=== PATIENT | male | born 1945 | race Caucasian/White ===

== ENCOUNTER 2019-05-20 23:48 | Inpatient (IN) ==
[2019-05-21] MEDS ORDERED: ACETAMINOPHEN 325 MG TABLET PO PRN (02:17)
[2019-05-21] MEDS ORDERED: ONDANSETRON 4 MG/2 ML VIAL IV PRN (02:17)
[2019-05-21] MEDS ORDERED: GLUCAGON 1 MG VIAL IM PRN (02:24)
[2019-05-21] MEDS ORDERED: DEXTROSE 50% 25 GM/50 ML VIAL IV PRN (02:24)
[2019-05-21] MEDS ORDERED: ENOXAPARIN 40 MG/0.4 ML SYRINGE SUBCUT SCH (02:30)
[2019-05-21 03:26] LABS: Basophils # 0.1 10*3/uL (0.0-0.2); Basophils % 0.7 % (0.0-0.8); Eosinophils # 0.3 10*3/uL (0.0-0.87); Eosinophils % 3.2 % (0.00-10.9); Hematocrit 42.1 VOL% (42.0-52.0); Hemoglobin 14.1 GM/DL (14.0-18.0); Immature Granulocytes % 0.6 %; Immature Granulocytes Absolute 0.05 #; Lymphocytes # 2.9 10*3/uL (1.4-4.0); Lymphocytes % 31.6 % (21.2-54.2); Mean Corpuscular HGB Conc 33.5 GM/DL (32-36); Mean Corpuscular Volume 95.7 FL (87-102); Mean Platelet Volume 11.4 FL (9.6-12.0); Monocytes % 12.4 % (1.7-12.7); Neutrophils % 51.5 % (38.7-73.9); Platelet Count 173 T/CUMM (130-400); Red Cell Distribution Width 12.9 % (9.3-17.3); White Blood Count 9.1 T/CUMM (4-12)
[2019-05-21] MEDS: SODIUM CHLORIDE 0.9% 1,000 ML IV SCH ×2 (03:30→21:44)
[2019-05-21 03:52] LABS: Calcium 9.1 MG/DL (8.5-10.1); Osmolality,Calculated 292.5 MOS/KG (273-304); Risk Ratio 5.16; Thyroid Stimulating Hormone 0.068 uIU/ml (0.358-3.74)
[2019-05-21] MEDS: ENOXAPARIN 100 MG/ML SYRINGE SUBCUT SCH ×2 (07:34→17:15)
[2019-05-21] MEDS: LOSARTAN 25 MG TABLET PO SCH (09:21)
[2019-05-21] MEDS: PANTOPRAZOLE 40 MG TABLET PO SCH (09:21)
[2019-05-21] MEDS: INSULIN REGULAR 100 UNIT/ML SUBCUT SCH ×4 (09:21→21:36)
[2019-05-21] MEDS: METOPROLOL TARTRATE 50 MG TABLET PO SCH ×2 (09:21→21:38)
[2019-05-21] MEDS: ASPIRIN EC 81 MG TABLET PO SCH (09:21)
[2019-05-21] MEDS: ISOSORBIDE DINITRATE SR 40 MG TABLET PO SCH ×2 (09:31→21:52)
[2019-05-21 13:27] LABS: Troponin I 0.056 NG/ML (0.00-0.045)
[2019-05-21 15:34] LABS: Troponin I 0.099 NG/ML (0.00-0.045)
[2019-05-21] MEDS ORDERED: ATORVASTATIN 40 MG TABLET PO SCH (21:00)
[2019-05-21] MEDS: MORPHINE 4 MG/1 ML VIAL IV PRN (21:37)
[2019-05-21] MEDS: INSULIN GLARGINE 100 UNIT/ML SUBCUT SCH (21:49)
[2019-05-22] MEDS: MORPHINE 4 MG/1 ML VIAL IV PRN ×2 (01:31→19:47)
[2019-05-22 04:07] LABS: Basophils # 0.1 10*3/uL (0.0-0.2); Basophils % 1.2 % (0.0-0.8); Eosinophils # 0.4 10*3/uL (0.0-0.87); Eosinophils % 5.6 % (0.00-10.9); Hematocrit 41.7 VOL% (42.0-52.0); Hemoglobin 14.4 GM/DL (14.0-18.0); Immature Granulocytes % 0.1 %; Immature Granulocytes Absolute 0.01 #; Lymphocytes # 2.3 10*3/uL (1.4-4.0); Lymphocytes % 33.6 % (21.2-54.2); Mean Corpuscular HGB Conc 34.5 GM/DL (32-36); Mean Corpuscular Volume 94.1 FL (87-102); Mean Platelet Volume 11.2 FL (9.6-12.0); Monocytes % 9.6 % (1.7-12.7); Neutrophils % 49.9 % (38.7-73.9); Platelet Count 154 T/CUMM (130-400); Red Blood Count 4.43 MC/CUMM (3.8-5.5); Red Cell Distribution Width 12.4 % (9.3-17.3); White Blood Count 6.8 T/CUMM (4-12)
[2019-05-22] MEDS: ENOXAPARIN 100 MG/ML SYRINGE SUBCUT SCH ×2 (04:26→17:31)
[2019-05-22 04:46] LABS: Calcium 8.6 MG/DL (8.5-10.1); Free T4 (Free Thyroxine) 1.52 NG/DL (0.76-1.46); Osmolality,Calculated 288.5 MOS/KG (273-304); Thyroid Stimulating Hormone 0.032 uIU/ml (0.358-3.74)
[2019-05-22] MEDS ORDERED: MAGNESIUM SULF RIDER 2 GM in PREMIX 1 EACH IV PRN (07:13)
[2019-05-22] MEDS ORDERED: DIAZEPAM 5 MG TABLET PO ONE ×2 (07:13→15:30)
[2019-05-22] MEDS ORDERED: POTASSIUM CHLORIDE RIDER 10 MEQ in PREMIX 1 EACH IV PRN (07:13)
[2019-05-22] MEDS: ISOSORBIDE DINITRATE SR 40 MG TABLET PO SCH ×3 (08:28→20:46)
[2019-05-22] MEDS: FAMOTIDINE 20 MG/2 ML VIAL IV SCH ×2 (10:47→20:47)
[2019-05-22] MEDS: LOSARTAN 25 MG TABLET PO SCH (10:52)
[2019-05-22] MEDS: predniSONE 20 MG TABLET PO SCH ×3 (10:52→20:47)
[2019-05-22] MEDS: PANTOPRAZOLE 40 MG TABLET PO SCH (10:52)
[2019-05-22] MEDS: METOPROLOL TARTRATE 50 MG TABLET PO SCH ×2 (10:53→20:47)
[2019-05-22] MEDS: ASPIRIN EC 81 MG TABLET PO SCH (11:05)
[2019-05-22] MEDS: INSULIN REGULAR 100 UNIT/ML SUBCUT SCH ×4 (11:05→20:47)
[2019-05-22] MEDS: diphenhydrAMINE 50 MG/1 ML VIAL IV SCH ×2 (12:49→18:27)
[2019-05-22] MEDS ORDERED: LIDOCAINE 1% 20 ML VIAL ONE ×2 (13:55→15:40)
[2019-05-22] MEDS ORDERED: HEPARIN/NACL 0.9% 2 UNITS/ML 0 ML IV ONE (13:55)
[2019-05-22] MEDS: SODIUM CHLORIDE 0.9% 1,000 ML IV SCH (15:13)
[2019-05-22] MEDS ORDERED: MIDAZOLAM 2 MG/2 ML VIAL ONE (15:41)
[2019-05-22] MEDS ORDERED: fentaNYL 100 MCG/2 ML VIAL ONE (15:42)
[2019-05-22] MEDS ORDERED: GLUCAGON 1 MG VIAL IM PRN (16:28)
[2019-05-22] MEDS ORDERED: DEXTROSE 50% 25 GM/50 ML VIAL IV PRN (16:28)
[2019-05-22] MEDS: INSULIN GLARGINE 100 UNIT/ML SUBCUT SCH (20:48)
[2019-05-22] MEDS ORDERED: ROSUVASTATIN 20 MG TABLET PO SCH (21:00)
[2019-05-23] MEDS: diphenhydrAMINE 50 MG/1 ML VIAL IV SCH ×2 (00:19→05:58)
[2019-05-23] MEDS: MORPHINE 4 MG/1 ML VIAL IV PRN ×2 (00:20→04:37)
[2019-05-23] MEDS: predniSONE 20 MG TABLET PO SCH ×3 (00:24→08:25)
[2019-05-23] MEDS: ENOXAPARIN 100 MG/ML SYRINGE SUBCUT SCH (04:35)
[2019-05-23 05:51] LABS: Basophils % 0.1 % (0.0-0.8); Hematocrit 43.6 VOL% (42.0-52.0); Hemoglobin 15.1 GM/DL (14.0-18.0); Immature Granulocytes % 0.4 %; Immature Granulocytes Absolute 0.05 #; Lymphocytes # 1.2 10*3/uL (1.4-4.0); Lymphocytes % 9.1 % (21.2-54.2); Mean Corpuscular HGB Conc 34.6 GM/DL (32-36); Mean Corpuscular Volume 93.8 FL (87-102); Mean Platelet Volume 11.9 FL (9.6-12.0); Monocytes % 2.1 % (1.7-12.7); Neutrophils % 88.3 % (38.7-73.9); Platelet Count 167 T/CUMM (130-400); Red Blood Count 4.65 MC/CUMM (3.8-5.5); Red Cell Distribution Width 12.5 % (9.3-17.3); White Blood Count 13.1 T/CUMM (4-12)
[2019-05-23 06:55] LABS: Calcium 9.3 MG/DL (8.5-10.1); Osmolality,Calculated 290.7 MOS/KG (273-304)
[2019-05-23 07:22] VITALS: BP 145/70
[2019-05-23] MEDS: FAMOTIDINE 20 MG/2 ML VIAL IV SCH (08:21)
[2019-05-23] MEDS: INSULIN REGULAR 100 UNIT/ML SUBCUT SCH (08:24)
[2019-05-23] MEDS: METOPROLOL TARTRATE 50 MG TABLET PO SCH (08:25)
[2019-05-23] MEDS: ASPIRIN EC 81 MG TABLET PO SCH (08:25)
[2019-05-23] MEDS: LOSARTAN 25 MG TABLET PO SCH (08:26)
[2019-05-23] MEDS: PANTOPRAZOLE 40 MG TABLET PO SCH (08:26)
[2019-05-23] MEDS: ISOSORBIDE DINITRATE SR 40 MG TABLET PO SCH (08:28)
[2019-05-23] MEDS ORDERED: CLOPIDOGREL 75 MG TABLET PO SCH (09:00)
== END 2019-05-23 12:39 | disposition home or self-care (01) | DRG 287 ==
LOC: N.TELEN → SUATTDRO 05-21 02:18
PROVIDERS: ADMIT Internal Medicine; ATTEND Internal Medicine

== ENCOUNTER 2021-12-15 09:03 | Inpatient (IN) ==
[2021-12-15] MEDS ORDERED: MEPERIDINE 25 MG/1 ML VIAL IV ONE (09:04)
[2021-12-15] MEDS ORDERED: POTASSIUM CHLORIDE RIDER 10 MEQ/100 ML PREMIX IV PRN (09:19)
[2021-12-15] MEDS ORDERED: MAGNESIUM SULF RIDER 2 GM/50 ML PREMIX IV PRN (09:19)
[2021-12-15] MEDS ORDERED: diphenhydrAMINE CAP 25 MG CAPSULE PO ONE (09:19)
[2021-12-15] MEDS ORDERED: DIAZEPAM 5 MG TABLET PO ONE (09:19)
[2021-12-15] MEDS ORDERED: ASPIRIN 325 MG TABLET PO ONE (09:19)
[2021-12-15] MEDS ORDERED: FAMOTIDINE 20 MG/2 ML VIAL IV ONE ×3 (09:32→10:38)
[2021-12-15] MEDS ORDERED: diphenhydrAMINE 50 MG/1 ML VIAL IV ONE (09:33)
[2021-12-15] MEDS ORDERED: methylPREDNISolone SOD SUC 125 MG/2 ML VIAL IV ONE (09:33)
[2021-12-15 09:53] LABS: Basophils # 0.1 10*3/uL (0.0-0.2); Basophils % 0.7 % (0.0-0.8); Eosinophils # 0.5 10*3/uL (0.0-0.87); Eosinophils % 3.3 % (0.00-10.9); Hematocrit 39.4 VOL% (42.0-52.0); Hemoglobin 12.8 GM/DL (14.0-18.0); Immature Granulocytes % 0.5 %; Immature Granulocytes Absolute 0.08 #; Lymphocytes # 2.1 10*3/uL (1.4-4.0); Lymphocytes % 14.3 % (21.2-54.2); Mean Corpuscular HGB Conc 32.5 GM/DL (32-36); Mean Corpuscular Volume 91.2 FL (87-102); Mean Platelet Volume 9.7 FL (9.6-12.0); Monocytes % 8.4 % (1.7-12.7); Neutrophils % 72.8 % (38.7-73.9); Platelet Count 347 T/CUMM (130-400); Red Blood Count 4.32 MC/CUMM (3.8-5.5); Red Cell Distribution Width 13.5 % (9.3-17.3); White Blood Count 14.7 T/CUMM (4-12)
[2021-12-15 10:08] LABS: Calcium 9.4 MG/DL (8.5-10.1); Potassium 3.9 MMOL/L (3.5-5.1)
[2021-12-15] MEDS ORDERED: DIAZEPAM 5 MG TABLET ONE (10:35)
[2021-12-15] MEDS ORDERED: ASPIRIN 325 MG TABLET ONE (10:36)
[2021-12-15] MEDS ORDERED: methylPREDNISolone SOD SUC 125 MG/2 ML VIAL ONE (10:36)
[2021-12-15] MEDS ORDERED: diphenhydrAMINE 50 MG/1 ML VIAL ONE (10:36)
[2021-12-15] MEDS: SODIUM CHLORIDE 0.9% 1,000 ML IV SCH ×3 (10:38→18:30)
[2021-12-15] MEDS ORDERED: HEPARIN/NACL 0.9% 2 UNITS/ML 3,000 UNIT/1,500 ML BAG IV ONE (11:14)
[2021-12-15] MEDS ORDERED: MIDAZOLAM 2 MG/2 ML VIAL ONE (11:37)
[2021-12-15] MEDS ORDERED: fentaNYL 100 MCG/2 ML VIAL ONE (11:37)
[2021-12-15] MEDS ORDERED: hydrALAZINE 20 MG/1 ML VIAL ONE (12:14)
[2021-12-15] MEDS ORDERED: HEPARIN 5,000 UNIT/1 ML VIAL ONE (12:24)
[2021-12-15] MEDS ORDERED: NITROGLYCERIN 2% OINT 1 INCH/GM PACK TOP ONE (12:24)
[2021-12-15] MEDS ORDERED: CLOPIDOGREL 75 MG TABLET ONE (12:37)
[2021-12-15] MEDS ORDERED: DEXTROSE 50% 25 GM/50 ML VIAL IV PRN (15:20)
[2021-12-15] MEDS ORDERED: GLUCAGON 1 MG VIAL IM PRN (15:20)
[2021-12-15] MEDS ORDERED: ACETAMINOPHEN 500 MG TABLET PO PRN (15:31)
[2021-12-15] MEDS ORDERED: NAPROXEN 250 MG TABLET PO PRN (16:02)
[2021-12-15] MEDS: GABAPENTIN 300 MG CAPSULE PO SCH (21:44)
[2021-12-15] MEDS: METOPROLOL TARTRATE 50 MG TABLET PO SCH (21:44)
[2021-12-15] MEDS: INSULIN GLARGINE 100 UNIT/ML SUBCUT SCH (21:44)
[2021-12-15] MEDS: PANTOPRAZOLE 40 MG TABLET PO SCH (21:44)
[2021-12-15] MEDS: ROSUVASTATIN 20 MG TABLET PO SCH (21:44)
[2021-12-15] MEDS: metFORMIN 500 MG TABLET PO SCH (21:44)
[2021-12-15] MEDS: traMADol 50 MG TABLET PO PRN (23:55)
[2021-12-16] MEDS: SODIUM CHLORIDE 0.9% 1,000 ML IV SCH (04:30)
[2021-12-16 04:39] LABS: Basophils % 0.1 % (0.0-0.8); Hematocrit 39.1 VOL% (42.0-52.0); Hemoglobin 12.7 GM/DL (14.0-18.0); Immature Granulocytes % 0.6 %; Immature Granulocytes Absolute 0.09 #; Lymphocytes # 1.2 10*3/uL (1.4-4.0); Lymphocytes % 8.2 % (21.2-54.2); Mean Corpuscular HGB Conc 32.5 GM/DL (32-36); Mean Corpuscular Volume 91.4 FL (87-102); Monocytes % 2.3 % (1.7-12.7); Neutrophils % 88.8 % (38.7-73.9); Platelet Count 341 T/CUMM (130-400); Red Blood Count 4.28 MC/CUMM (3.8-5.5); Red Cell Distribution Width 13.7 % (9.3-17.3); White Blood Count 14.9 T/CUMM (4-12)
[2021-12-16 05:03] LABS: Osmolality,Calculated 283.1 MOS/KG (273-304); Potassium 4.5 MMOL/L (3.5-5.1)
[2021-12-16] MEDS ORDERED: FAMOTIDINE 20 MG TABLET PO SCH (09:00)
[2021-12-16] MEDS ORDERED: SODIUM CHLORIDE 0.9% 1,000 ML IV SCH (09:30)
[2021-12-16] MEDS: metFORMIN 500 MG TABLET PO SCH (09:42)
[2021-12-16] MEDS: METOPROLOL TARTRATE 50 MG TABLET PO SCH ×2 (09:45→22:50)
[2021-12-16] MEDS: COENZYME Q10 100 MG CAPSULE PO SCH (09:45)
[2021-12-16] MEDS: GABAPENTIN 300 MG CAPSULE PO SCH ×2 (09:46→22:50)
[2021-12-16] MEDS: ISOSORBIDE DINITRATE 10 MG TABLET PO SCH (09:46)
[2021-12-16] MEDS: LOSARTAN 25 MG TABLET PO SCH (09:46)
[2021-12-16] MEDS: sitaGLIPtin 100 MG TABLET PO SCH (09:46)
[2021-12-16] MEDS: CHOLECALCIFEROL 1,000 UNIT TABLET PO SCH (09:46)
[2021-12-16] MEDS: ASPIRIN EC 81 MG TABLET PO SCH (09:46)
[2021-12-16] MEDS: CLOPIDOGREL 75 MG TABLET PO SCH (09:47)
[2021-12-16] MEDS: INSULIN REGULAR 100 UNIT/ML SUBCUT SCH ×4 (09:48→22:50)
[2021-12-16] MEDS: traMADol 50 MG TABLET PO PRN (10:34)
[2021-12-16] MEDS: ROSUVASTATIN 20 MG TABLET PO SCH (22:50)
[2021-12-16] MEDS: INSULIN GLARGINE 100 UNIT/ML SUBCUT SCH (22:50)
[2021-12-16] MEDS: PANTOPRAZOLE 40 MG TABLET PO SCH (22:51)
[2021-12-17] MEDS: traMADol 50 MG TABLET PO PRN ×3 (00:05→18:32)
[2021-12-17 04:53] LABS: Basophils # 0.1 10*3/uL (0.0-0.2); Basophils % 0.5 % (0.0-0.8); Eosinophils # 0.1 10*3/uL (0.0-0.87); Eosinophils % 0.9 % (0.00-10.9); Hematocrit 37.5 VOL% (42.0-52.0); Hemoglobin 12.2 GM/DL (14.0-18.0); Immature Granulocytes % 0.6 %; Immature Granulocytes Absolute 0.09 #; Lymphocytes % 19.7 % (21.2-54.2); Mean Corpuscular HGB Conc 32.5 GM/DL (32-36); Mean Corpuscular Volume 89.7 FL (87-102); Mean Platelet Volume 9.8 FL (9.6-12.0); Monocytes % 7.1 % (1.7-12.7); Neutrophils % 71.2 % (38.7-73.9); Platelet Count 317 T/CUMM (130-400); Red Blood Count 4.18 MC/CUMM (3.8-5.5); Red Cell Distribution Width 13.7 % (9.3-17.3); White Blood Count 15.1 T/CUMM (4-12)
[2021-12-17 05:18] LABS: Calcium 8.8 MG/DL (8.5-10.1); Osmolality,Calculated 287.5 MOS/KG (273-304); Potassium 4.1 MMOL/L (3.5-5.1)
[2021-12-17 05:44] LABS: % Iron Saturation 35.2 % (18-50)
[2021-12-17] MEDS ORDERED: LIDOCAINE 1% 50 ML VIAL ONE (07:47)
[2021-12-17] MEDS ORDERED: fentaNYL 100 MCG/2 ML VIAL ONE (07:53)
[2021-12-17] MEDS ORDERED: ETOMIDATE 40 MG/20 ML VIAL IV ONE (08:16)
[2021-12-17] MEDS ORDERED: DEXMEDETOMIDINE 200 MCG/2 ML VIAL ONE (08:16)
[2021-12-17] MEDS ORDERED: propofoL 200 MG/20 ML VIAL IV ONE (08:16)
[2021-12-17] MEDS ORDERED: GLYCOPYRROLATE 0.4 MG/2 ML VIAL ONE (08:16)
[2021-12-17] MEDS ORDERED: ONDANSETRON 4 MG/2 ML VIAL IV PRN (09:05)
[2021-12-17] MEDS ORDERED: MEPERIDINE 50 MG/1 ML VIAL IV PRN (09:16)
[2021-12-17] MEDS ORDERED: MEPERIDINE 25 MG/1 ML VIAL IV ONE (09:20)
[2021-12-17] MEDS ORDERED: MEPERIDINE 25 MG/1 ML VIAL ONE (09:22)
[2021-12-17] MEDS: INSULIN REGULAR 100 UNIT/ML SUBCUT SCH ×4 (09:46→20:39)
[2021-12-17] MEDS: CLOPIDOGREL 75 MG TABLET PO SCH (10:37)
[2021-12-17] MEDS: COENZYME Q10 100 MG CAPSULE PO SCH (10:37)
[2021-12-17] MEDS: GABAPENTIN 300 MG CAPSULE PO SCH ×2 (10:38→20:38)
[2021-12-17] MEDS: ASPIRIN EC 81 MG TABLET PO SCH (10:38)
[2021-12-17] MEDS: LOSARTAN 25 MG TABLET PO SCH (10:38)
[2021-12-17] MEDS: ISOSORBIDE DINITRATE 10 MG TABLET PO SCH (10:38)
[2021-12-17] MEDS: METOPROLOL TARTRATE 50 MG TABLET PO SCH ×2 (10:38→20:38)
[2021-12-17] MEDS: sitaGLIPtin 100 MG TABLET PO SCH (10:38)
[2021-12-17] MEDS: CHOLECALCIFEROL 1,000 UNIT TABLET PO SCH (10:38)
[2021-12-17] MEDS: ROSUVASTATIN 20 MG TABLET PO SCH (20:38)
[2021-12-17] MEDS: PANTOPRAZOLE 40 MG TABLET PO SCH (20:38)
[2021-12-17] MEDS: INSULIN GLARGINE 100 UNIT/ML SUBCUT SCH (20:38)
[2021-12-17] MEDS: metFORMIN 500 MG TABLET PO SCH (20:38)
[2021-12-18] MEDS: traMADol 50 MG TABLET PO PRN (05:04)
[2021-12-18 05:23] LABS: Basophils # 0.1 10*3/uL (0.0-0.2); Basophils % 0.6 % (0.0-0.8); Eosinophils # 0.3 10*3/uL (0.0-0.87); Hematocrit 38.9 VOL% (42.0-52.0); Hemoglobin 12.4 GM/DL (14.0-18.0); Immature Granulocytes % 0.6 %; Immature Granulocytes Absolute 0.09 #; Lymphocytes # 2.9 10*3/uL (1.4-4.0); Lymphocytes % 18.9 % (21.2-54.2); Mean Corpuscular HGB Conc 31.9 GM/DL (32-36); Monocytes % 7.7 % (1.7-12.7); Neutrophils % 70.2 % (38.7-73.9); Platelet Count 341 T/CUMM (130-400); Red Blood Count 4.23 MC/CUMM (3.8-5.5); Red Cell Distribution Width 13.8 % (9.3-17.3); White Blood Count 15.1 T/CUMM (4-12)
[2021-12-18 05:44] LABS: Calcium 9.4 MG/DL (8.5-10.1); Osmolality,Calculated 283.7 MOS/KG (273-304); Potassium 4.3 MMOL/L (3.5-5.1)
[2021-12-18] MEDS: sitaGLIPtin 100 MG TABLET PO SCH (10:38)
[2021-12-18] MEDS: ASPIRIN EC 81 MG TABLET PO SCH (10:38)
[2021-12-18] MEDS: COENZYME Q10 100 MG CAPSULE PO SCH (10:39)
[2021-12-18] MEDS: CLOPIDOGREL 75 MG TABLET PO SCH (10:39)
[2021-12-18] MEDS: GABAPENTIN 300 MG CAPSULE PO SCH (10:40)
[2021-12-18] MEDS: LOSARTAN 25 MG TABLET PO SCH (10:40)
[2021-12-18] MEDS: CHOLECALCIFEROL 1,000 UNIT TABLET PO SCH (10:41)
[2021-12-18] MEDS: metFORMIN 500 MG TABLET PO SCH (10:41)
[2021-12-18] MEDS: METOPROLOL TARTRATE 50 MG TABLET PO SCH (10:41)
[2021-12-18] MEDS: ISOSORBIDE DINITRATE 10 MG TABLET PO SCH (10:42)
[2021-12-18] MEDS: INSULIN REGULAR 100 UNIT/ML SUBCUT SCH ×2 (10:44→11:22)
[2021-12-18 12:37] VITALS: BP 137/69
== END 2021-12-18 13:53 | disposition home health service (06) | DRG 253 ==
LOC: N.CL 09:03 → N.TELEN 15:52
PROVIDERS: ADMIT Internal Medicine Cardiovascular Disease; ATTEND Internal Medicine Cardiovascular Disease

== ENCOUNTER 2022-01-04 13:30 | Inpatient (IN) ==
[2022-01-04 16:03] LABS: Basophils # 0.1 10*3/uL (0.0-0.2); Basophils % 0.5 % (0.0-0.8); Eosinophils # 0.7 10*3/uL (0.0-0.87); Eosinophils % 4.7 % (0.00-10.9); Hematocrit 38.9 VOL% (42.0-52.0); Hemoglobin 12.5 GM/DL (14.0-18.0); Immature Granulocytes % 0.6 %; Immature Granulocytes Absolute 0.08 #; Lymphocytes # 1.5 10*3/uL (1.4-4.0); Lymphocytes % 10.8 % (21.2-54.2); Mean Corpuscular HGB Conc 32.1 GM/DL (32-36); Monocytes % 6.9 % (1.7-12.7); Neutrophils % 76.5 % (38.7-73.9); Platelet Count 270 T/CUMM (130-400); Red Blood Count 4.32 MC/CUMM (3.8-5.5); Red Cell Distribution Width 13.7 % (9.3-17.3); White Blood Count 14.2 T/CUMM (4-12)
[2022-01-04 16:18] LABS: Alanine Aminotransferase 20 U/L (16-61); Albumin 2.8 G/DL (3.4-5.0); Alkaline Phosphatase 107 U/L (45-117); Aspartate Amino Transferase 15 U/L (0-37); Bilirubin,Total < 0.39 MG/DL (0.20-1.00); Blood Urea Nitrogen 24 MG/DL (7-18); Calcium 9.1 MG/DL (8.5-10.1); Carbon Dioxide 27 MMOL/L (21-32); Estimated Glom Filtration Rate 81 ML/MIN; Glucose 99 MG/DL (74-106); Osmolality,Calculated 278.7 MOS/KG (273-304); Potassium 4.7 MMOL/L (3.5-5.1); Sodium 138 MMOL/L (136-145); Total Protein 7.1 G/DL (6.4-8.2)
[2022-01-04] MEDS ORDERED: cefTRIAXone 1,000 MG in SODIUM CHLORIDE 0.9% 100 ML IV STA (17:11)
[2022-01-04] MEDS ORDERED: DEXTROSE 50% 25 GM/50 ML VIAL IV PRN (17:49)
[2022-01-04] MEDS ORDERED: ONDANSETRON 4 MG/2 ML VIAL IV PRN (17:49)
[2022-01-04] MEDS ORDERED: GLUCAGON 1 MG VIAL IM PRN (17:49)
[2022-01-04] MEDS ORDERED: DEXTROSE 10% 250 ML BAG IV PRN (18:08)
[2022-01-04] MEDS ORDERED: MORPHINE 2 MG/1 ML SYRINGE IV STA (18:19)
[2022-01-04] MEDS ORDERED: ALBUTEROL/IPRATROPIUM 3 ML NEB RESP TX PRN (18:26)
[2022-01-04] MEDS: ACETAMINOPHEN 325 MG TABLET PO PRN (20:46)
[2022-01-04] MEDS: AZITHROMYCIN INJ 500 MG in SODIUM CHLORIDE 0.9% 250 ML IV SCH (21:15)
[2022-01-04] MEDS: INSULIN REGULAR 100 UNIT/ML SUBCUT SCH (21:24)
[2022-01-05] MEDS: HYDROmorphone 1 MG/1 ML SYRINGE IV PRN ×4 (01:02→21:54)
[2022-01-05 05:11] LABS: Basophils # 0.1 10*3/uL (0.0-0.2); Basophils % 0.7 % (0.0-0.8); Eosinophils # 0.7 10*3/uL (0.0-0.87); Eosinophils % 5.9 % (0.00-10.9); Hematocrit 38.1 VOL% (42.0-52.0); Hemoglobin 12.4 GM/DL (14.0-18.0); Immature Granulocytes % 0.4 %; Immature Granulocytes Absolute 0.04 #; Lymphocytes # 1.5 10*3/uL (1.4-4.0); Lymphocytes % 13.5 % (21.2-54.2); Mean Corpuscular HGB Conc 32.5 GM/DL (32-36); Mean Corpuscular Volume 90.1 FL (87-102); Mean Platelet Volume 10.1 FL (9.6-12.0); Monocytes % 8.2 % (1.7-12.7); Neutrophils % 71.3 % (38.7-73.9); Platelet Count 269 T/CUMM (130-400); Red Blood Count 4.23 MC/CUMM (3.8-5.5); Red Cell Distribution Width 13.7 % (9.3-17.3); White Blood Count 11.1 T/CUMM (4-12)
[2022-01-05 05:25] LABS: Albumin 2.3 G/DL (3.4-5.0); Bilirubin,Total 0.6 MG/DL (0.20-1.00); Calcium 9.2 MG/DL (8.5-10.1); Osmolality,Calculated 280.8 MOS/KG (273-304); Total Protein 7.4 G/DL (6.4-8.2)
[2022-01-05] MEDS: ENOXAPARIN 40 MG/0.4 ML SYRINGE SUBCUT SCH (06:33)
[2022-01-05] MEDS: ACETAMINOPHEN 325 MG TABLET PO PRN (06:38)
[2022-01-05] MEDS: INSULIN REGULAR 100 UNIT/ML SUBCUT SCH ×4 (08:53→22:36)
[2022-01-05] MEDS: PANTOPRAZOLE 40 MG TABLET PO SCH (09:52)
[2022-01-05] MEDS ORDERED: SKIN HEALING OINT (AQUAPHOR) 50 GM TUBE TOP PRN (11:12)
[2022-01-05] MEDS: cefTRIAXone 1,000 MG in SODIUM CHLORIDE 0.9% 100 ML IV SCH (18:40)
[2022-01-05] MEDS: ROSUVASTATIN 20 MG TABLET PO SCH (20:36)
[2022-01-05] MEDS: METOPROLOL TARTRATE 50 MG TABLET PO SCH (20:36)
[2022-01-05] MEDS: AZITHROMYCIN INJ 500 MG in SODIUM CHLORIDE 0.9% 250 ML IV SCH (20:36)
[2022-01-05] MEDS: GABAPENTIN 300 MG CAPSULE PO SCH (20:36)
[2022-01-05] MEDS: INSULIN GLARGINE 100 UNIT/ML SUBCUT SCH (21:44)
[2022-01-06] MEDS: HYDROmorphone 1 MG/1 ML SYRINGE IV PRN ×3 (02:52→20:54)
[2022-01-06 05:33] LABS: Basophils # 0.1 10*3/uL (0.0-0.2); Basophils % 0.8 % (0.0-0.8); Eosinophils # 0.6 10*3/uL (0.0-0.87); Eosinophils % 5.3 % (0.00-10.9); Hemoglobin 11.6 GM/DL (14.0-18.0); Immature Granulocytes % 0.5 %; Immature Granulocytes Absolute 0.06 #; Lymphocytes # 1.9 10*3/uL (1.4-4.0); Lymphocytes % 17.1 % (21.2-54.2); Mean Corpuscular HGB Conc 32.2 GM/DL (32-36); Mean Corpuscular Volume 89.6 FL (87-102); Mean Platelet Volume 9.7 FL (9.6-12.0); Monocytes % 8.4 % (1.7-12.7); Neutrophils % 67.9 % (38.7-73.9); Platelet Count 279 T/CUMM (130-400); Red Blood Count 4.02 MC/CUMM (3.8-5.5); Red Cell Distribution Width 13.7 % (9.3-17.3); White Blood Count 11.2 T/CUMM (4-12)
[2022-01-06 05:57] LABS: Calcium 9.4 MG/DL (8.5-10.1); Osmolality,Calculated 276.8 MOS/KG (273-304); Potassium 4.3 MMOL/L (3.5-5.1)
[2022-01-06] MEDS: ENOXAPARIN 40 MG/0.4 ML SYRINGE SUBCUT SCH (06:05)
[2022-01-06] MEDS: INSULIN REGULAR 100 UNIT/ML SUBCUT SCH ×3 (09:02→16:44)
[2022-01-06] MEDS: LOSARTAN 25 MG TABLET PO SCH (09:04)
[2022-01-06] MEDS: CHOLECALCIFEROL 1,000 UNIT TABLET PO SCH (09:04)
[2022-01-06] MEDS: GABAPENTIN 300 MG CAPSULE PO SCH ×2 (09:04→20:51)
[2022-01-06] MEDS: METOPROLOL TARTRATE 50 MG TABLET PO SCH ×2 (09:04→20:51)
[2022-01-06] MEDS: CLOPIDOGREL 75 MG TABLET PO SCH (09:04)
[2022-01-06] MEDS: ASPIRIN EC 81 MG TABLET PO SCH (09:04)
[2022-01-06] MEDS: PANTOPRAZOLE 40 MG TABLET PO SCH (09:04)
[2022-01-06] MEDS: ISOSORBIDE DINITRATE 10 MG TABLET PO SCH (09:05)
[2022-01-06] MEDS: COLLAGENASE OINT 30 GM TUBE TOP SCH (09:06)
[2022-01-06] MEDS: cefTRIAXone 1,000 MG in SODIUM CHLORIDE 0.9% 100 ML IV SCH (17:58)
[2022-01-06] MEDS: AZITHROMYCIN INJ 500 MG in SODIUM CHLORIDE 0.9% 250 ML IV SCH (18:54)
[2022-01-06] MEDS: ROSUVASTATIN 20 MG TABLET PO SCH (20:51)
[2022-01-06] MEDS: INSULIN GLARGINE 100 UNIT/ML SUBCUT SCH (21:48)
[2022-01-07] MEDS: HYDROmorphone 1 MG/1 ML SYRINGE IV PRN (05:28)
[2022-01-07 06:13] LABS: Basophils # 0.1 10*3/uL (0.0-0.2); Basophils % 0.8 % (0.0-0.8); Eosinophils # 0.7 10*3/uL (0.0-0.87); Eosinophils % 6.1 % (0.00-10.9); Hematocrit 35.8 VOL% (42.0-52.0); Hemoglobin 11.6 GM/DL (14.0-18.0); Immature Granulocytes % 0.5 %; Immature Granulocytes Absolute 0.06 #; Lymphocytes # 2.2 10*3/uL (1.4-4.0); Lymphocytes % 19.5 % (21.2-54.2); Mean Corpuscular HGB Conc 32.4 GM/DL (32-36); Mean Corpuscular Volume 89.1 FL (87-102); Mean Platelet Volume 9.9 FL (9.6-12.0); Monocytes % 9.4 % (1.7-12.7); Neutrophils % 63.7 % (38.7-73.9); Platelet Count 289 T/CUMM (130-400); Red Blood Count 4.02 MC/CUMM (3.8-5.5); Red Cell Distribution Width 13.7 % (9.3-17.3); White Blood Count 11.4 T/CUMM (4-12)
[2022-01-07 06:30] LABS: Calcium 9.3 MG/DL (8.5-10.1); Osmolality,Calculated 278.7 MOS/KG (273-304)
[2022-01-07] MEDS: ISOSORBIDE DINITRATE 10 MG TABLET PO SCH (09:53)
[2022-01-07] MEDS: ASPIRIN EC 81 MG TABLET PO SCH (09:53)
[2022-01-07] MEDS: PANTOPRAZOLE 40 MG TABLET PO SCH (09:54)
[2022-01-07] MEDS: CLOPIDOGREL 75 MG TABLET PO SCH (09:54)
[2022-01-07] MEDS: METOPROLOL TARTRATE 50 MG TABLET PO SCH (09:54)
[2022-01-07] MEDS: CHOLECALCIFEROL 1,000 UNIT TABLET PO SCH (09:54)
[2022-01-07] MEDS: LOSARTAN 25 MG TABLET PO SCH (09:54)
[2022-01-07] MEDS: ENOXAPARIN 40 MG/0.4 ML SYRINGE SUBCUT SCH (09:55)
[2022-01-07] MEDS: INSULIN REGULAR 100 UNIT/ML SUBCUT SCH ×3 (09:56→11:42)
[2022-01-07] MEDS: COLLAGENASE OINT 30 GM TUBE TOP SCH (09:59)
[2022-01-07] MEDS: GABAPENTIN 300 MG CAPSULE PO SCH (10:02)
[2022-01-07 11:44] VITALS: BP 127/59
[2022-01-08] MEDS ORDERED: FUROSEMIDE 20 MG TABLET PO SCH (09:00)
[2022-01-08] MEDS ORDERED: LEVOFLOXACIN 500 MG TABLET PO SCH (09:00)
== END 2022-01-07 13:00 | disposition home or self-care (01) | DRG 194 ==
LOC: N.EDINP 13:30 → N.ED 13:30 → N.3E 22:36
PROVIDERS: ADMIT Hospitalist; ATTEND Hospitalist

== ENCOUNTER 2022-03-14 06:32 | Inpatient (IN) ==
[2022-03-06 16:33] LABS: Basophils # 0.1 10*3/uL (0.0-0.2); Basophils % 0.8 % (0.0-0.8); Eosinophils # 0.7 10*3/uL (0.0-0.87); Eosinophils % 4.9 % (0.00-10.9); Hematocrit 35.7 VOL% (42.0-52.0); Hemoglobin 11.2 GM/DL (14.0-18.0); Immature Granulocytes % 0.8 %; Immature Granulocytes Absolute 0.12 #; Lymphocytes # 2.7 10*3/uL (1.4-4.0); Lymphocytes % 18.2 % (21.2-54.2); Mean Corpuscular HGB Conc 31.4 GM/DL (32-36); Mean Corpuscular Volume 89.5 FL (87-102); Mean Platelet Volume 9.9 FL (9.6-12.0); Monocytes # 1.1 10*3/uL (0.11-0.8); Monocytes % 7.8 % (1.7-12.7); Neutrophils % 67.5 % (38.7-73.9); Platelet Count 419 T/CUMM (130-400); Red Blood Count 3.99 MC/CUMM (3.8-5.5); Red Cell Distribution Width 16.9 % (9.3-17.3); White Blood Count 14.6 T/CUMM (4-12)
[2022-03-06 17:37] LABS: Calcium 9.5 MG/DL (8.5-10.1); Osmolality,Calculated 281.7 MOS/KG (273-304); Potassium 4.8 MMOL/L (3.5-5.1)
[2022-03-06 18:47] LABS: PT Patient Result 11.3 SECS (10.5-12.0); Partial Thromboplastin Time 35.7 SECS (23.8-32.1)
[2022-03-14] MEDS ORDERED: FAMOTIDINE 20 MG TABLET PO ONE (06:53)
[2022-03-14] MEDS ORDERED: ACETAMINOPHEN 500 MG TABLET PO ONE (06:53)
[2022-03-14] MEDS ORDERED: DIAZEPAM 5 MG TABLET PO ONE (06:53)
[2022-03-14] MEDS ORDERED: GABAPENTIN 400 MG CAPSULE PO ONE (06:53)
[2022-03-14] MEDS ORDERED: LACTATED RINGERS 1,000 ML IV SCH (07:00)
[2022-03-14] MEDS ORDERED: DEXAMETHASONE 4 MG/1 ML VIAL ONE ×2 (07:36→08:43)
[2022-03-14] MEDS ORDERED: fentaNYL 100 MCG/2 ML VIAL ONE (07:36)
[2022-03-14] MEDS ORDERED: LIDOCAINE 2% 5 ML VIAL ONE (07:36)
[2022-03-14] MEDS ORDERED: ONDANSETRON 4 MG/2 ML VIAL ONE (07:36)
[2022-03-14] MEDS ORDERED: propofoL 200 MG/20 ML VIAL IV ONE (07:36)
[2022-03-14] MEDS ORDERED: SEVOFLURANE 1 UNIT/15 MINUTE INH ONE ×5 (07:36→10:44)
[2022-03-14] MEDS ORDERED: LIDOCAINE 1% 5 ML VIAL ONE ×2 (07:46→08:37)
[2022-03-14] MEDS ORDERED: ROPIVACAINE 0.5% 30 ML VIAL ONE ×2 (07:47→08:37)
[2022-03-14] MEDS ORDERED: ePHEDrine 50 MG/ML VIAL ONE (09:25)
[2022-03-14] MEDS ORDERED: ONDANSETRON 4 MG/2 ML VIAL IV PRN ×2 (10:45→11:19)
[2022-03-14] MEDS ORDERED: DEXTROSE 10% 250 ML BAG IV PRN (10:45)
[2022-03-14] MEDS ORDERED: ACETAMINOPHEN 325 MG TABLET PO PRN (10:45)
[2022-03-14] MEDS ORDERED: GLUCAGON 1 MG VIAL IM PRN (10:45)
[2022-03-14] MEDS: LACTATED RINGERS 1,000 ML IV SCH (11:14)
[2022-03-14] MEDS: HYDROmorphone 1 MG/1 ML SYRINGE IV PRN ×4 (11:21→20:52)
[2022-03-14] MEDS: INSULIN REGULAR 100 UNIT/ML SUBCUT SCH ×3 (12:53→20:52)
[2022-03-15] MEDS: HYDROmorphone 1 MG/1 ML SYRINGE IV PRN ×2 (04:49→18:26)
[2022-03-15] MEDS: ENOXAPARIN 40 MG/0.4 ML SYRINGE SUBCUT SCH (05:19)
[2022-03-15] MEDS: LACTATED RINGERS 1,000 ML IV SCH (05:45)
[2022-03-15 05:57] LABS: Basophils % 0.1 % (0.0-0.8); Hematocrit 30.4 VOL% (42.0-52.0); Hemoglobin 9.7 GM/DL (14.0-18.0); Immature Granulocytes % 0.7 %; Immature Granulocytes Absolute 0.13 #; Lymphocytes # 1.2 10*3/uL (1.4-4.0); Lymphocytes % 6.8 % (21.2-54.2); Mean Corpuscular HGB Conc 31.9 GM/DL (32-36); Mean Corpuscular Volume 88.4 FL (87-102); Mean Platelet Volume 9.6 FL (9.6-12.0); Monocytes # 0.7 10*3/uL (0.11-0.8); Neutrophils % 88.4 % (38.7-73.9); Platelet Count 364 T/CUMM (130-400); Red Blood Count 3.44 MC/CUMM (3.8-5.5); Red Cell Distribution Width 16.9 % (9.3-17.3); White Blood Count 17.7 T/CUMM (4-12)
[2022-03-15 06:19] LABS: Calcium 9.3 MG/DL (8.5-10.1); Osmolality,Calculated 285.7 MOS/KG (273-304); Potassium 4.4 MMOL/L (3.5-5.1)
[2022-03-15] MEDS: PANTOPRAZOLE 40 MG TABLET PO SCH (08:33)
[2022-03-15] MEDS: INSULIN REGULAR 100 UNIT/ML SUBCUT SCH ×4 (08:33→21:39)
[2022-03-15] MEDS ORDERED: ASPIRIN EC 81 MG TABLET PO SCH (09:00)
[2022-03-15] MEDS ORDERED: ACETAMINOPHEN 325 MG TABLET PO SCH (09:00)
[2022-03-15] MEDS: ASPIRIN EC 325 MG TABLET PO SCH (09:43)
[2022-03-15] MEDS: ISOSORBIDE DINITRATE 10 MG TABLET PO SCH (09:44)
[2022-03-15] MEDS: METOPROLOL TARTRATE 50 MG TABLET PO SCH ×2 (09:44→21:39)
[2022-03-15] MEDS: GABAPENTIN 400 MG CAPSULE PO SCH ×2 (09:44→21:39)
[2022-03-15] MEDS: CLOPIDOGREL 75 MG TABLET PO SCH (09:45)
[2022-03-15] MEDS: LOSARTAN 25 MG TABLET PO SCH (10:25)
[2022-03-15] MEDS ORDERED: ATORVASTATIN 20 MG TABLET PO SCH (21:00)
[2022-03-15] MEDS: INSULIN GLARGINE 100 UNIT/ML SUBCUT SCH (21:39)
[2022-03-16] MEDS: HYDROmorphone 1 MG/1 ML SYRINGE IV PRN ×3 (01:18→21:21)
[2022-03-16] MEDS: ENOXAPARIN 40 MG/0.4 ML SYRINGE SUBCUT SCH (05:27)
[2022-03-16 06:26] LABS: Basophils # 0.1 10*3/uL (0.0-0.2); Basophils % 0.4 % (0.0-0.8); Eosinophils # 0.3 10*3/uL (0.0-0.87); Eosinophils % 1.8 % (0.00-10.9); Immature Granulocytes % 0.7 %; Immature Granulocytes Absolute 0.14 #; Lymphocytes # 4.6 10*3/uL (1.4-4.0); Lymphocytes % 24.7 % (21.2-54.2); Mean Corpuscular HGB Conc 31.3 GM/DL (32-36); Mean Corpuscular Volume 88.9 FL (87-102); Mean Platelet Volume 9.5 FL (9.6-12.0); Monocytes # 1.3 10*3/uL (0.11-0.8); Monocytes % 7.1 % (1.7-12.7); Neutrophils % 65.3 % (38.7-73.9); Platelet Count 395 T/CUMM (130-400); Red Cell Distribution Width 16.7 % (9.3-17.3); White Blood Count 18.8 T/CUMM (4-12)
[2022-03-16 06:42] LABS: Alanine Aminotransferase 44 U/L (16-61); Albumin 2.3 G/DL (3.4-5.0); Alkaline Phosphatase 120 U/L (45-117); Aspartate Amino Transferase 37 U/L (0-37); Bilirubin,Total < 0.39 MG/DL (0.20-1.00); Blood Urea Nitrogen 26 MG/DL (7-18); Calcium 8.8 MG/DL (8.5-10.1); Carbon Dioxide 29 MMOL/L (21-32); Chloride 102 MMOL/L (98-107); Glucose 132 MG/DL (74-106); Osmolality,Calculated 279.8 MOS/KG (273-304); Potassium 4.1 MMOL/L (3.5-5.1); Sodium 137 MMOL/L (136-145); Total Protein 7.2 G/DL (6.4-8.2)
[2022-03-16 06:56] LABS: Band Neutrophils 1 % (0-10); Eosinophils 2 % (0-10); Hypochromia Slight; Lymphocytes 20 % (20-55); Microcytosis Slight; Platelet Estimate Adequate; Total Cells Counted 100
[2022-03-16] MEDS: ISOSORBIDE DINITRATE 10 MG TABLET PO SCH (09:03)
[2022-03-16] MEDS: LOSARTAN 25 MG TABLET PO SCH (09:04)
[2022-03-16] MEDS: METOPROLOL TARTRATE 50 MG TABLET PO SCH ×2 (09:04→21:20)
[2022-03-16] MEDS: ASPIRIN EC 325 MG TABLET PO SCH (09:04)
[2022-03-16] MEDS: PANTOPRAZOLE 40 MG TABLET PO SCH (09:04)
[2022-03-16] MEDS: CLOPIDOGREL 75 MG TABLET PO SCH (09:05)
[2022-03-16] MEDS: GABAPENTIN 400 MG CAPSULE PO SCH ×2 (09:05→21:20)
[2022-03-16] MEDS: INSULIN REGULAR 100 UNIT/ML SUBCUT SCH ×4 (09:10→21:23)
[2022-03-16] MEDS: PIPERACILLIN/TAZOBACTAM 3,375 MG in SODIUM CHLORIDE 0.9% 100 ML IV SCH ×2 (10:05→17:13)
[2022-03-16] MEDS: COLLAGENASE OINT 30 GM TUBE TOP SCH (10:06)
[2022-03-16] MEDS: ALOGLIPTIN 25 MG PO SCH (10:07)
[2022-03-16 11:58] LABS: RBC,Urine 10 /HPF (0-4)
[2022-03-16 11:59] LABS: Bilirubin,Urine Negative (Negative); Blood, Urine Negative (Negative); Glucose,Urine (UA) >1000 mg/dL (Negative); Ketones,Urine Negative (Negative); Nitrite,Urine Negative (Negative); Protein,Urine Negative (Negative); Urine Appearance Clear (Clear); Urine Color Yellow (Yellow); Urine Urobilinogen 0.2 eU/dL (<2.0); Urine pH 5.5 (4.5-8.0)
[2022-03-16] MEDS: VANCOMYCIN INJ 1,500 MG in SODIUM CHLORIDE 0.9% 500 ML IV SCH (14:14)
[2022-03-16] MEDS: INSULIN GLARGINE 100 UNIT/ML SUBCUT SCH (21:20)
[2022-03-17] MEDS: PIPERACILLIN/TAZOBACTAM 3,375 MG in SODIUM CHLORIDE 0.9% 100 ML IV SCH ×3 (02:01→17:52)
[2022-03-17] MEDS: HYDROmorphone 1 MG/1 ML SYRINGE IV PRN ×2 (02:20→10:25)
[2022-03-17] MEDS: VANCOMYCIN INJ 1,500 MG in SODIUM CHLORIDE 0.9% 500 ML IV SCH ×2 (02:50→14:35)
[2022-03-17] MEDS: ENOXAPARIN 40 MG/0.4 ML SYRINGE SUBCUT SCH (05:32)
[2022-03-17] MEDS: INSULIN REGULAR 100 UNIT/ML SUBCUT SCH ×4 (08:15→21:10)
[2022-03-17] MEDS: PANTOPRAZOLE 40 MG TABLET PO SCH (08:30)
[2022-03-17] MEDS: LOSARTAN 25 MG TABLET PO SCH (08:30)
[2022-03-17] MEDS: ASPIRIN EC 325 MG TABLET PO SCH (08:30)
[2022-03-17] MEDS: GABAPENTIN 400 MG CAPSULE PO SCH ×2 (08:30→21:09)
[2022-03-17] MEDS: ISOSORBIDE DINITRATE 10 MG TABLET PO SCH (08:32)
[2022-03-17] MEDS: METOPROLOL TARTRATE 50 MG TABLET PO SCH (08:32)
[2022-03-17] MEDS: COLLAGENASE OINT 30 GM TUBE TOP SCH (08:34)
[2022-03-17] MEDS: ALOGLIPTIN 25 MG PO SCH (08:34)
[2022-03-17] MEDS: CLOPIDOGREL 75 MG TABLET PO SCH (08:35)
[2022-03-17 11:24] LABS: Basophils # 0.1 10*3/uL (0.0-0.2); Basophils % 0.8 % (0.0-0.8); Eosinophils # 0.6 10*3/uL (0.0-0.87); Eosinophils % 3.8 % (0.00-10.9); Hematocrit 30.7 VOL% (42.0-52.0); Hemoglobin 9.7 GM/DL (14.0-18.0); Immature Granulocytes % 1.4 %; Immature Granulocytes Absolute 0.21 #; Lymphocytes # 2.7 10*3/uL (1.4-4.0); Lymphocytes % 17.7 % (21.2-54.2); Mean Corpuscular HGB Conc 31.6 GM/DL (32-36); Mean Platelet Volume 9.5 FL (9.6-12.0); Monocytes # 1.2 10*3/uL (0.11-0.8); Monocytes % 7.9 % (1.7-12.7); Neutrophils % 68.4 % (38.7-73.9); Platelet Count 390 T/CUMM (130-400); Red Blood Count 3.49 MC/CUMM (3.8-5.5); Red Cell Distribution Width 16.9 % (9.3-17.3); White Blood Count 15.4 T/CUMM (4-12)
[2022-03-17] MEDS ORDERED: LACTATED RINGERS 250 ML IV ONE (16:26)
[2022-03-17] MEDS ORDERED: POTASSIUM CHLORIDE RIDER 10 MEQ/100 ML PREMIX IV PRN (16:27)
[2022-03-17] MEDS ORDERED: MAGNESIUM SULF RIDER 4 GM/100 ML PREMIX IV PRN (16:27)
[2022-03-17] MEDS ORDERED: MAGNESIUM SULF RIDER 2 GM/50 ML PREMIX IV PRN (16:27)
[2022-03-17 17:18] LABS: High Sensitive Troponin I* 15.3 ng/L (0-78)
[2022-03-17 17:34] LABS: Calcium 8.4 MG/DL (8.5-10.1); Osmolality,Calculated 281.8 MOS/KG (273-304)
[2022-03-17 18:35] LABS: % Iron Saturation 13.1 % (18-50)
[2022-03-17 18:45] LABS: Folate 8.58 NG/ML (5.38-24.0)
[2022-03-17] MEDS: INSULIN GLARGINE 100 UNIT/ML SUBCUT SCH (21:11)
[2022-03-17 23:06] LABS: High Sensitive Troponin I* 16.3 ng/L (0-78)
[2022-03-18] MEDS: PIPERACILLIN/TAZOBACTAM 3,375 MG in SODIUM CHLORIDE 0.9% 100 ML IV SCH ×3 (01:45→17:17)
[2022-03-18] MEDS: VANCOMYCIN INJ 1,500 MG in SODIUM CHLORIDE 0.9% 500 ML IV SCH ×2 (02:49→22:08)
[2022-03-18] MEDS: HYDROmorphone 1 MG/1 ML SYRINGE IV PRN ×2 (02:58→20:30)
[2022-03-18] MEDS: ENOXAPARIN 40 MG/0.4 ML SYRINGE SUBCUT SCH (05:20)
[2022-03-18 05:33] LABS: Basophils # 0.1 10*3/uL (0.0-0.2); Basophils % 0.6 % (0.0-0.8); Eosinophils # 0.6 10*3/uL (0.0-0.87); Eosinophils % 3.8 % (0.00-10.9); Hematocrit 31.3 VOL% (42.0-52.0); Hemoglobin 9.7 GM/DL (14.0-18.0); Immature Granulocytes Absolute 0.16 #; Lymphocytes # 2.8 10*3/uL (1.4-4.0); Lymphocytes % 17.1 % (21.2-54.2); Mean Corpuscular Volume 88.9 FL (87-102); Mean Platelet Volume 9.6 FL (9.6-12.0); Monocytes # 1.3 10*3/uL (0.11-0.8); Monocytes % 7.8 % (1.7-12.7); Neutrophils % 69.7 % (38.7-73.9); Platelet Count 360 T/CUMM (130-400); Red Blood Count 3.52 MC/CUMM (3.8-5.5); Red Cell Distribution Width 16.7 % (9.3-17.3); White Blood Count 16.5 T/CUMM (4-12)
[2022-03-18 06:00] LABS: Calcium 8.8 MG/DL (8.5-10.1); Osmolality,Calculated 278.4 MOS/KG (273-304); Potassium 3.6 MMOL/L (3.5-5.1)
[2022-03-18 06:04] LABS: High Sensitive Troponin I* 18.5 ng/L (0-78)
[2022-03-18 06:05] LABS: Risk Ratio 5.44; VLDL Cholesterol 19.4 MG/DL
[2022-03-18 06:15] LABS: Calcium 8.7 MG/DL (8.5-10.1); Osmolality,Calculated 280.3 MOS/KG (273-304); Potassium 3.6 MMOL/L (3.5-5.1)
[2022-03-18] MEDS ORDERED: propofoL 200 MG/20 ML VIAL IV ONE (06:22)
[2022-03-18] MEDS ORDERED: LIDOCAINE 2% 5 ML VIAL ONE (06:22)
[2022-03-18] MEDS ORDERED: fentaNYL 100 MCG/2 ML VIAL ONE (06:22)
[2022-03-18] MEDS ORDERED: MIDAZOLAM 2 MG/2 ML VIAL ONE (06:22)
[2022-03-18] MEDS ORDERED: PHENYLEPHRINE 1 MG/10 ML SYRINGE IV ONE (06:22)
[2022-03-18] MEDS ORDERED: ETOMIDATE 40 MG/20 ML VIAL IV ONE (06:22)
[2022-03-18] MEDS ORDERED: ONDANSETRON 4 MG/2 ML VIAL ONE (06:22)
[2022-03-18] MEDS ORDERED: BUPIVACAINE 0.5% 50 ML VIAL ONE (06:31)
[2022-03-18] MEDS: INSULIN REGULAR 100 UNIT/ML SUBCUT SCH ×4 (07:00→20:31)
[2022-03-18] MEDS: COLLAGENASE OINT 30 GM TUBE TOP SCH (10:00)
[2022-03-18] MEDS: ISOSORBIDE DINITRATE 10 MG TABLET PO SCH (11:05)
[2022-03-18] MEDS: ASPIRIN EC 325 MG TABLET PO SCH (11:05)
[2022-03-18] MEDS: PANTOPRAZOLE 40 MG TABLET PO SCH (11:06)
[2022-03-18] MEDS: GABAPENTIN 400 MG CAPSULE PO SCH ×2 (11:06→20:30)
[2022-03-18] MEDS: FERROUS SULFATE 325 MG TABLET PO SCH ×2 (11:06→20:30)
[2022-03-18] MEDS: CLOPIDOGREL 75 MG TABLET PO SCH ×2 (11:06→11:07)
[2022-03-18] MEDS: LOSARTAN 25 MG TABLET PO SCH (11:07)
[2022-03-18] MEDS: ALOGLIPTIN 25 MG PO SCH (11:08)
[2022-03-18] MEDS ORDERED: DEXTROSE 10% 250 ML BAG IV PRN (17:21)
[2022-03-18] MEDS: INSULIN GLARGINE 100 UNIT/ML SUBCUT SCH (20:31)
[2022-03-19] MEDS: HYDROmorphone 1 MG/1 ML SYRINGE IV PRN ×2 (00:10→04:48)
[2022-03-19] MEDS: PIPERACILLIN/TAZOBACTAM 3,375 MG in SODIUM CHLORIDE 0.9% 100 ML IV SCH ×3 (02:30→18:16)
[2022-03-19] MEDS: ENOXAPARIN 40 MG/0.4 ML SYRINGE SUBCUT SCH (04:33)
[2022-03-19 05:10] LABS: Basophils # 0.1 10*3/uL (0.0-0.2); Basophils % 0.7 % (0.0-0.8); Eosinophils # 0.8 10*3/uL (0.0-0.87); Eosinophils % 5.2 % (0.00-10.9); Hematocrit 27.5 VOL% (42.0-52.0); Hemoglobin 8.5 GM/DL (14.0-18.0); Immature Granulocytes % 1.1 %; Immature Granulocytes Absolute 0.16 #; Lymphocytes # 2.6 10*3/uL (1.4-4.0); Lymphocytes % 17.9 % (21.2-54.2); Mean Corpuscular HGB Conc 30.9 GM/DL (32-36); Mean Corpuscular Volume 90.8 FL (87-102); Mean Platelet Volume 9.5 FL (9.6-12.0); Monocytes # 1.2 10*3/uL (0.11-0.8); Monocytes % 8.3 % (1.7-12.7); Neutrophils % 66.8 % (38.7-73.9); Platelet Count 323 T/CUMM (130-400); Red Blood Count 3.03 MC/CUMM (3.8-5.5); White Blood Count 14.5 T/CUMM (4-12)
[2022-03-19 05:23] LABS: Calcium 8.5 MG/DL (8.5-10.1); Osmolality,Calculated 278.4 MOS/KG (273-304); Potassium 3.8 MMOL/L (3.5-5.1)
[2022-03-19] MEDS: LOSARTAN 25 MG TABLET PO SCH (08:48)
[2022-03-19] MEDS: FERROUS SULFATE 325 MG TABLET PO SCH ×2 (08:48→16:56)
[2022-03-19] MEDS: ASPIRIN EC 325 MG TABLET PO SCH (08:48)
[2022-03-19] MEDS: ISOSORBIDE DINITRATE 10 MG TABLET PO SCH (08:48)
[2022-03-19] MEDS: PANTOPRAZOLE 40 MG TABLET PO SCH (08:48)
[2022-03-19] MEDS: GABAPENTIN 400 MG CAPSULE PO SCH ×2 (08:48→20:30)
[2022-03-19] MEDS: CLOPIDOGREL 75 MG TABLET PO SCH (08:48)
[2022-03-19] MEDS: ALOGLIPTIN 25 MG PO SCH (08:49)
[2022-03-19 08:55] LABS: Basophils # 0.1 10*3/uL (0.0-0.2); Basophils % 0.7 % (0.0-0.8); Eosinophils # 0.7 10*3/uL (0.0-0.87); Eosinophils % 5.1 % (0.00-10.9); Hematocrit 25.7 VOL% (42.0-52.0); Hemoglobin 8.1 GM/DL (14.0-18.0); Immature Granulocytes % 0.8 %; Immature Granulocytes Absolute 0.11 #; Lymphocytes # 2.4 10*3/uL (1.4-4.0); Lymphocytes % 17.3 % (21.2-54.2); Mean Corpuscular HGB Conc 31.5 GM/DL (32-36); Mean Corpuscular Volume 88.9 FL (87-102); Mean Platelet Volume 9.4 FL (9.6-12.0); Monocytes # 1.2 10*3/uL (0.11-0.8); Monocytes % 8.4 % (1.7-12.7); Neutrophils % 67.7 % (38.7-73.9); Platelet Count 291 T/CUMM (130-400); Red Blood Count 2.89 MC/CUMM (3.8-5.5); White Blood Count 13.7 T/CUMM (4-12)
[2022-03-19] MEDS: COLLAGENASE OINT 30 GM TUBE TOP SCH (10:45)
[2022-03-19] MEDS: INSULIN REGULAR 100 UNIT/ML SUBCUT SCH ×4 (10:57→20:29)
[2022-03-19] MEDS: VANCOMYCIN INJ 1,500 MG in SODIUM CHLORIDE 0.9% 500 ML IV SCH (15:29)
[2022-03-19] MEDS: INSULIN GLARGINE 100 UNIT/ML SUBCUT SCH (20:29)
[2022-03-19] MEDS: METOPROLOL TARTRATE 50 MG TABLET PO SCH (21:18)
[2022-03-20] MEDS: PIPERACILLIN/TAZOBACTAM 3,375 MG in SODIUM CHLORIDE 0.9% 100 ML IV SCH ×2 (01:03→11:48)
[2022-03-20] MEDS: ENOXAPARIN 40 MG/0.4 ML SYRINGE SUBCUT SCH (04:10)
[2022-03-20 04:54] LABS: Basophils # 0.1 10*3/uL (0.0-0.2); Basophils % 0.7 % (0.0-0.8); Eosinophils # 0.8 10*3/uL (0.0-0.87); Eosinophils % 6.5 % (0.00-10.9); Hematocrit 27.2 VOL% (42.0-52.0); Hemoglobin 8.3 GM/DL (14.0-18.0); Immature Granulocytes % 0.8 %; Lymphocytes # 1.9 10*3/uL (1.4-4.0); Lymphocytes % 15.2 % (21.2-54.2); Mean Corpuscular HGB Conc 30.5 GM/DL (32-36); Mean Corpuscular Volume 91.9 FL (87-102); Mean Platelet Volume 9.7 FL (9.6-12.0); Monocytes # 1.1 10*3/uL (0.11-0.8); Monocytes % 8.9 % (1.7-12.7); Neutrophils % 67.9 % (38.7-73.9); Platelet Count 305 T/CUMM (130-400); Red Blood Count 2.96 MC/CUMM (3.8-5.5); Red Cell Distribution Width 17.1 % (9.3-17.3); White Blood Count 12.6 T/CUMM (4-12)
[2022-03-20] MEDS: LOSARTAN 25 MG TABLET PO SCH (08:00)
[2022-03-20] MEDS: GABAPENTIN 400 MG CAPSULE PO SCH (08:00)
[2022-03-20] MEDS: METOPROLOL TARTRATE 50 MG TABLET PO SCH (08:00)
[2022-03-20] MEDS: PANTOPRAZOLE 40 MG TABLET PO SCH (08:00)
[2022-03-20] MEDS: ISOSORBIDE DINITRATE 10 MG TABLET PO SCH (08:00)
[2022-03-20] MEDS: ASPIRIN EC 325 MG TABLET PO SCH (08:00)
[2022-03-20] MEDS: FERROUS SULFATE 325 MG TABLET PO SCH (08:00)
[2022-03-20] MEDS: CLOPIDOGREL 75 MG TABLET PO SCH (08:00)
[2022-03-20] MEDS: ALOGLIPTIN 25 MG PO SCH (08:01)
[2022-03-20] MEDS: INSULIN REGULAR 100 UNIT/ML SUBCUT SCH ×2 (08:02→12:07)
[2022-03-20] MEDS: COLLAGENASE OINT 30 GM TUBE TOP SCH (08:03)
[2022-03-20] MEDS: VANCOMYCIN INJ 1,500 MG in SODIUM CHLORIDE 0.9% 500 ML IV SCH (09:16)
[2022-03-20 11:40] VITALS: BP 132/67
== END 2022-03-20 13:05 | disposition home health service (06) | DRG 240 ==
LOC: N.OR 06:32 → N.SDSINP 06:33 → EDSTATUS 10:30 → N.SDSINP 10:45 → N.3E 11:57
PROVIDERS: ADMIT Student in an Organized Health Care Education/Training Program; ATTEND Student in an Organized Health Care Education/Training Program

== ENCOUNTER 2022-04-08 12:02 | Inpatient (IN) ==
[2022-04-08] MEDS ORDERED: PIPERACILLIN/TAZOBACTAM 3,375 MG in SODIUM CHLORIDE 0.9% 100 ML IV STA (13:26)
[2022-04-08 14:15] LABS: Calcium 9.3 MG/DL (8.5-10.1); Osmolality,Calculated 271.2 MOS/KG (273-304); Potassium 4.2 MMOL/L (3.5-5.1)
[2022-04-08 15:57] LABS: Basophils # 0.1 10*3/uL (0.0-0.2); Basophils % 0.8 % (0.0-0.8); Eosinophils # 0.7 10*3/uL (0.0-0.87); Eosinophils % 5.6 % (0.00-10.9); Hematocrit 34.5 VOL% (42.0-52.0); Hemoglobin 10.8 GM/DL (14.0-18.0); Immature Granulocytes % 0.5 %; Immature Granulocytes Absolute 0.06 #; Lymphocytes # 2.5 10*3/uL (1.4-4.0); Lymphocytes % 19.2 % (21.2-54.2); Mean Corpuscular HGB Conc 31.3 GM/DL (32-36); Mean Corpuscular Volume 86.3 FL (87-102); Mean Platelet Volume 9.5 FL (9.6-12.0); Monocytes % 7.7 % (1.7-12.7); Neutrophils % 66.2 % (38.7-73.9); Platelet Count 357 T/CUMM (130-400); Red Cell Distribution Width 15.9 % (9.3-17.3); White Blood Count 13.2 T/CUMM (4-12)
[2022-04-08] MEDS ORDERED: ACETAMINOPHEN 325 MG TABLET PO PRN (17:22)
[2022-04-08] MEDS ORDERED: GLUCAGON 1 MG VIAL IM PRN (17:22)
[2022-04-08] MEDS ORDERED: PIPERACILLIN/TAZOBACTAM 3,375 MG in SODIUM CHLORIDE 0.9% 100 ML IV SCH (17:22)
[2022-04-08] MEDS ORDERED: ONDANSETRON 4 MG/2 ML VIAL IV PRN (17:22)
[2022-04-08] MEDS ORDERED: DEXTROSE 10% 250 ML BAG IV PRN (17:38)
[2022-04-08] MEDS: INSULIN REGULAR 100 UNIT/ML SUBCUT SCH (18:08)
[2022-04-08] MEDS: PIPERACILLIN/TAZOBACTAM 3,375 MG in SODIUM CHLORIDE 0.9% 100 ML IV SCH (22:44)
[2022-04-09] MEDS: INSULIN REGULAR 100 UNIT/ML SUBCUT SCH ×4 (01:38→17:13)
[2022-04-09] MEDS: MORPHINE 2 MG/1 ML SYRINGE IV PRN ×2 (06:03→21:09)
[2022-04-09] MEDS: PIPERACILLIN/TAZOBACTAM 3,375 MG in SODIUM CHLORIDE 0.9% 100 ML IV SCH ×3 (07:11→23:10)
[2022-04-09] MEDS: PANTOPRAZOLE 40 MG TABLET PO SCH (08:31)
[2022-04-09] MEDS ORDERED: GLUCAGON 1 MG VIAL IM PRN (11:59)
[2022-04-09] MEDS ORDERED: DEXTROSE 50% 25 GM/50 ML VIAL IV PRN (11:59)
[2022-04-09] MEDS ORDERED: TUBERCULIN SKIN TEST 0.1 ML SYRINGE INTRADERM ONE (15:40)
[2022-04-09] MEDS: GABAPENTIN 400 MG CAPSULE PO SCH (21:05)
[2022-04-09] MEDS: INSULIN GLARGINE 100 UNIT/ML SUBCUT SCH (21:06)
[2022-04-10] MEDS: MORPHINE 2 MG/1 ML SYRINGE IV PRN ×2 (03:53→20:41)
[2022-04-10 04:39] LABS: Basophils # 0.1 10*3/uL (0.0-0.2); Basophils % 0.9 % (0.0-0.8); Eosinophils # 0.9 10*3/uL (0.0-0.87); Eosinophils % 7.5 % (0.00-10.9); Hemoglobin 10.8 GM/DL (14.0-18.0); Immature Granulocytes % 0.5 %; Immature Granulocytes Absolute 0.06 #; Lymphocytes # 2.7 10*3/uL (1.4-4.0); Lymphocytes % 21.5 % (21.2-54.2); Mean Corpuscular HGB Conc 30.9 GM/DL (32-36); Mean Corpuscular Volume 87.7 FL (87-102); Mean Platelet Volume 9.7 FL (9.6-12.0); Monocytes # 1.2 10*3/uL (0.11-0.8); Monocytes % 9.3 % (1.7-12.7); Neutrophils % 60.3 % (38.7-73.9); Platelet Count 343 T/CUMM (130-400); Red Blood Count 3.99 MC/CUMM (3.8-5.5); Red Cell Distribution Width 15.6 % (9.3-17.3); White Blood Count 12.5 T/CUMM (4-12)
[2022-04-10] MEDS: PIPERACILLIN/TAZOBACTAM 3,375 MG in SODIUM CHLORIDE 0.9% 100 ML IV SCH ×3 (06:10→23:19)
[2022-04-10] MEDS: INSULIN REGULAR 100 UNIT/ML SUBCUT SCH ×3 (07:21→16:37)
[2022-04-10] MEDS ORDERED: ONDANSETRON 4 MG/2 ML VIAL ONE (08:47)
[2022-04-10] MEDS ORDERED: LIDOCAINE 2% 5 ML VIAL ONE (08:47)
[2022-04-10] MEDS ORDERED: propofoL 200 MG/20 ML VIAL IV ONE (08:47)
[2022-04-10] MEDS ORDERED: fentaNYL 100 MCG/2 ML VIAL ONE (08:47)
[2022-04-10] MEDS ORDERED: LACTATED RINGERS 1,000 ML IV SCH (09:00)
[2022-04-10] MEDS ORDERED: ePHEDrine 50 MG/ML VIAL ONE (09:20)
[2022-04-10] MEDS ORDERED: ETOMIDATE 40 MG/20 ML VIAL IV ONE (09:32)
[2022-04-10] MEDS ORDERED: SEVOFLURANE 1 UNIT/15 MINUTE INH ONE (09:32)
[2022-04-10] MEDS ORDERED: ONDANSETRON 4 MG/2 ML VIAL IV PRN (10:10)
[2022-04-10] MEDS: HYDROmorphone 1 MG/1 ML SYRINGE IV PRN ×2 (10:14→10:23)
[2022-04-10] MEDS ORDERED: MEPERIDINE 25 MG/1 ML VIAL ONE (10:35)
[2022-04-10] MEDS ORDERED: MEPERIDINE 25 MG/1 ML VIAL IV PRN (10:36)
[2022-04-10] MEDS: GABAPENTIN 400 MG CAPSULE PO SCH ×2 (11:58→20:40)
[2022-04-10] MEDS: CHOLECALCIFEROL 1,000 UNIT TABLET PO SCH (11:58)
[2022-04-10] MEDS: COENZYME Q10 100 MG CAPSULE PO SCH (11:58)
[2022-04-10] MEDS: PANTOPRAZOLE 40 MG TABLET PO SCH (11:58)
[2022-04-10] MEDS: LOSARTAN 25 MG TABLET PO SCH (11:58)
[2022-04-10] MEDS: ASPIRIN EC 81 MG TABLET PO SCH (11:58)
[2022-04-10] MEDS: ISOSORBIDE DINITRATE 10 MG TABLET PO SCH (11:58)
[2022-04-10] MEDS: ALOGLIPTIN 25 MG PO SCH (12:06)
[2022-04-10] MEDS: INSULIN GLARGINE 100 UNIT/ML SUBCUT SCH (20:37)
[2022-04-11] MEDS: MORPHINE 2 MG/1 ML SYRINGE IV PRN (05:21)
[2022-04-11] MEDS: INSULIN REGULAR 100 UNIT/ML SUBCUT SCH ×3 (08:38→16:35)
[2022-04-11] MEDS: COENZYME Q10 100 MG CAPSULE PO SCH (09:38)
[2022-04-11] MEDS: ISOSORBIDE DINITRATE 10 MG TABLET PO SCH (09:38)
[2022-04-11] MEDS: PIPERACILLIN/TAZOBACTAM 3,375 MG in SODIUM CHLORIDE 0.9% 100 ML IV SCH ×3 (09:38→23:30)
[2022-04-11] MEDS: ASPIRIN EC 81 MG TABLET PO SCH (09:38)
[2022-04-11] MEDS: LOSARTAN 25 MG TABLET PO SCH (09:39)
[2022-04-11] MEDS: GABAPENTIN 400 MG CAPSULE PO SCH ×2 (09:39→20:51)
[2022-04-11] MEDS: CHOLECALCIFEROL 1,000 UNIT TABLET PO SCH (09:50)
[2022-04-11] MEDS: PANTOPRAZOLE 40 MG TABLET PO SCH (09:50)
[2022-04-11] MEDS: ALOGLIPTIN 25 MG PO SCH (09:53)
[2022-04-11] MEDS: INSULIN GLARGINE 100 UNIT/ML SUBCUT SCH (20:51)
[2022-04-12] MEDS: ASPIRIN EC 81 MG TABLET PO SCH (08:52)
[2022-04-12] MEDS: INSULIN REGULAR 100 UNIT/ML SUBCUT SCH ×3 (08:52→16:56)
[2022-04-12] MEDS: GABAPENTIN 400 MG CAPSULE PO SCH (08:52)
[2022-04-12] MEDS: LOSARTAN 25 MG TABLET PO SCH (08:52)
[2022-04-12] MEDS: COENZYME Q10 100 MG CAPSULE PO SCH (08:52)
[2022-04-12] MEDS: ISOSORBIDE DINITRATE 10 MG TABLET PO SCH (08:53)
[2022-04-12] MEDS: PANTOPRAZOLE 40 MG TABLET PO SCH (08:53)
[2022-04-12] MEDS: CHOLECALCIFEROL 1,000 UNIT TABLET PO SCH (08:53)
[2022-04-12] MEDS: ALOGLIPTIN 25 MG PO SCH (10:58)
[2022-04-12] MEDS: MEROPENEM 500 MG in SODIUM CHLORIDE 0.9% 100 ML IV SCH ×3 (11:01→21:15)
[2022-04-12] MEDS: MORPHINE 2 MG/1 ML SYRINGE IV PRN (19:45)
[2022-04-12] MEDS: INSULIN GLARGINE 100 UNIT/ML SUBCUT SCH (22:02)
[2022-04-13] MEDS: MORPHINE 2 MG/1 ML SYRINGE IV PRN ×2 (01:00→05:19)
[2022-04-13] MEDS: GABAPENTIN 400 MG CAPSULE PO SCH ×2 (01:34→09:25)
[2022-04-13] MEDS: MEROPENEM 500 MG in SODIUM CHLORIDE 0.9% 100 ML IV SCH ×2 (02:55→09:37)
[2022-04-13] MEDS: PIPERACILLIN/TAZOBACTAM 3,375 MG in SODIUM CHLORIDE 0.9% 100 ML IV SCH (04:55)
[2022-04-13] MEDS: PANTOPRAZOLE 40 MG TABLET PO SCH (09:26)
[2022-04-13] MEDS: COENZYME Q10 100 MG CAPSULE PO SCH (09:26)
[2022-04-13] MEDS: CHOLECALCIFEROL 1,000 UNIT TABLET PO SCH (09:26)
[2022-04-13] MEDS: ASPIRIN EC 81 MG TABLET PO SCH (09:26)
[2022-04-13] MEDS: LOSARTAN 25 MG TABLET PO SCH (09:27)
[2022-04-13] MEDS: ISOSORBIDE DINITRATE 10 MG TABLET PO SCH (09:27)
[2022-04-13] MEDS: ALOGLIPTIN 25 MG PO SCH (09:34)
[2022-04-13] MEDS: INSULIN REGULAR 100 UNIT/ML SUBCUT SCH ×2 (09:36→12:15)
[2022-04-13 11:39] VITALS: BP 119/80
== END 2022-04-13 12:55 | disposition swing bed (61) | DRG 240 ==
LOC: N.ED 12:02 → N.3E 16:37
PROVIDERS: ADMIT Student in an Organized Health Care Education/Training Program; ATTEND Student in an Organized Health Care Education/Training Program

== ENCOUNTER 2022-04-29 12:52 | Inpatient (IN) ==
[2022-04-29] MEDS ORDERED: MORPHINE 2 MG/1 ML SYRINGE IV STA (15:39)
[2022-04-29] MEDS ORDERED: ONDANSETRON 4 MG/2 ML VIAL IV STA (15:40)
[2022-04-29 17:51] LABS: Basophils # 0.1 10*3/uL (0.0-0.2); Basophils % 0.8 % (0.0-0.8); Eosinophils # 0.7 10*3/uL (0.0-0.87); Hematocrit 32.8 VOL% (42.0-52.0); Hemoglobin 10.2 GM/DL (14.0-18.0); Immature Granulocytes % 0.6 %; Immature Granulocytes Absolute 0.07 #; Lymphocytes # 1.7 10*3/uL (1.4-4.0); Lymphocytes % 14.3 % (21.2-54.2); Mean Corpuscular HGB Conc 31.1 GM/DL (32-36); Mean Platelet Volume 9.7 FL (9.6-12.0); Monocytes # 1.1 10*3/uL (0.11-0.8); Monocytes % 8.9 % (1.7-12.7); Neutrophils % 69.4 % (38.7-73.9); Platelet Count 463 T/CUMM (130-400); Red Blood Count 3.86 MC/CUMM (3.8-5.5); Red Cell Distribution Width 16.3 % (9.3-17.3); White Blood Count 12.1 T/CUMM (4-12)
[2022-04-29 18:13] LABS: Alanine Aminotransferase 31 U/L (16-61); Albumin 2.5 G/DL (3.4-5.0); Alkaline Phosphatase 165 U/L (45-117); Aspartate Amino Transferase 20 U/L (0-37); Bilirubin,Total < 0.39 MG/DL (0.20-1.00); Blood Urea Nitrogen 19 MG/DL (7-18); Calcium 9.5 MG/DL (8.5-10.1); Carbon Dioxide 29 MMOL/L (21-32); Chloride 103 MMOL/L (98-107); Glucose 214 MG/DL (74-106); Osmolality,Calculated 282.7 MOS/KG (273-304); Sodium 138 MMOL/L (136-145); Total Protein 7.8 G/DL (6.4-8.2)
[2022-04-29] MEDS ORDERED: ONDANSETRON 4 MG/2 ML VIAL IV PRN ×2 (18:37→22:07)
[2022-04-29] MEDS ORDERED: ACETAMINOPHEN 500 MG TABLET PO PRN (18:37)
[2022-04-29] MEDS ORDERED: SODIUM CHLORIDE 0.9% 1,000 ML IV SCH ×2 (19:00→20:30)
[2022-04-29] MEDS ORDERED: GLUCAGON 1 MG VIAL IM PRN (19:05)
[2022-04-29] MEDS ORDERED: DEXTROSE 10% 250 ML BAG IV PRN (19:27)
[2022-04-29] MEDS ORDERED: VANCOMYCIN INJ 1,000 MG in SODIUM CHLORIDE 0.9% 250 ML IV SCH (19:30)
[2022-04-29] MEDS: HYDROmorphone 1 MG/1 ML SYRINGE IV PRN (20:09)
[2022-04-29] MEDS: CEFEPIME 1,000 MG in SODIUM CHLORIDE 0.9% 100 ML IV SCH (21:00)
[2022-04-29] MEDS ORDERED: VANCOMYCIN INJ 1,000 MG in SODIUM CHLORIDE 0.9% 500 ML IV SCH (22:07)
[2022-04-29] MEDS ORDERED: PIPERACILLIN/TAZOBACTAM 3,375 MG in SODIUM CHLORIDE 0.9% 100 ML IV SCH (22:07)
[2022-04-29] MEDS ORDERED: VANCOMYCIN INJ 1,500 MG in SODIUM CHLORIDE 0.9% 500 ML IV SCH (23:00)
[2022-04-29] MEDS: GABAPENTIN 400 MG CAPSULE PO SCH (23:05)
[2022-04-29] MEDS: INSULIN GLARGINE 100 UNIT/ML SUBCUT SCH (23:45)
[2022-04-29] MEDS: INSULIN REGULAR 100 UNIT/ML SUBCUT SCH (23:45)
[2022-04-30] MEDS: HYDROmorphone 1 MG/1 ML SYRINGE IV PRN ×2 (00:55→16:35)
[2022-04-30] MEDS: CEFEPIME 1,000 MG in SODIUM CHLORIDE 0.9% 100 ML IV SCH ×2 (02:55→09:18)
[2022-04-30 06:17] LABS: Basophils # 0.1 10*3/uL (0.0-0.2); Basophils % 0.8 % (0.0-0.8); Eosinophils # 0.8 10*3/uL (0.0-0.87); Eosinophils % 6.5 % (0.00-10.9); Hematocrit 30.4 VOL% (42.0-52.0); Hemoglobin 9.1 GM/DL (14.0-18.0); Immature Granulocytes % 0.4 %; Immature Granulocytes Absolute 0.05 #; Lymphocytes # 1.9 10*3/uL (1.4-4.0); Lymphocytes % 16.1 % (21.2-54.2); Mean Corpuscular HGB Conc 29.9 GM/DL (32-36); Mean Corpuscular Volume 85.4 FL (87-102); Mean Platelet Volume 9.4 FL (9.6-12.0); Monocytes # 1.1 10*3/uL (0.11-0.8); Monocytes % 9.4 % (1.7-12.7); Neutrophils % 66.8 % (38.7-73.9); Platelet Count 389 T/CUMM (130-400); Red Blood Count 3.56 MC/CUMM (3.8-5.5); Red Cell Distribution Width 16.1 % (9.3-17.3); White Blood Count 11.8 T/CUMM (4-12)
[2022-04-30 06:37] LABS: Calcium 8.9 MG/DL (8.5-10.1); Osmolality,Calculated 281.4 MOS/KG (273-304); Potassium 4.2 MMOL/L (3.5-5.1)
[2022-04-30] MEDS ORDERED: DEXTROSE 50% 25 GM/50 ML VIAL IV PRN (08:32)
[2022-04-30] MEDS ORDERED: GLUCAGON 1 MG VIAL IM PRN (08:32)
[2022-04-30] MEDS ORDERED: PANTOPRAZOLE 40 MG VIAL IV SCH (09:00)
[2022-04-30] MEDS ORDERED: CLOPIDOGREL 75 MG TABLET PO SCH (09:00)
[2022-04-30] MEDS: ASPIRIN EC 81 MG TABLET PO SCH (09:17)
[2022-04-30] MEDS: LOSARTAN 25 MG TABLET PO SCH (09:17)
[2022-04-30] MEDS: COENZYME Q10 100 MG CAPSULE PO SCH (09:17)
[2022-04-30] MEDS: GABAPENTIN 400 MG CAPSULE PO SCH ×2 (09:17→20:11)
[2022-04-30] MEDS: ISOSORBIDE DINITRATE 10 MG TABLET PO SCH (09:18)
[2022-04-30] MEDS: INSULIN REGULAR 100 UNIT/ML SUBCUT SCH ×4 (09:37→21:46)
[2022-04-30] MEDS: INSULIN LISPRO 100 UNIT/ML SUBCUT SCH ×2 (09:47→16:40)
[2022-04-30] MEDS: PANTOPRAZOLE 40 MG TABLET PO SCH ×2 (09:52→20:12)
[2022-04-30] MEDS: MEROPENEM 500 MG in SODIUM CHLORIDE 0.9% 100 ML IV SCH ×2 (11:29→17:32)
[2022-04-30] MEDS ORDERED: HYDROmorphone 1 MG/1 ML SYRINGE IV PRN (12:51)
[2022-04-30] MEDS ORDERED: ONDANSETRON 4 MG/2 ML VIAL IV PRN (12:52)
[2022-04-30] MEDS: NYSTATIN POWDER 15 GM BOTTLE TOP SCH ×2 (14:24→22:47)
[2022-04-30] MEDS: ACETAMINOPHEN 325 MG TABLET PO PRN (14:31)
[2022-04-30 14:58] LABS: Folate 4.22 NG/ML (5.38-24.0)
[2022-04-30 16:21] LABS: % Iron Saturation 13.9 % (18-50)
[2022-04-30] MEDS: LACTATED RINGERS 1,000 ML IV SCH (17:32)
[2022-04-30 19:31] LABS: Hyaline Casts,Urine 93 /LPF (0-3); Mucus,Urine Occasional /LPF (Occasional); RBC,Urine 1 /HPF (0-4)
[2022-04-30 19:32] LABS: Bilirubin,Urine Negative (Negative); Glucose,Urine (UA) 500 mg/dL (Negative); Ketones,Urine Trace mg/dL (Negative); Nitrite,Urine Negative (Negative); Protein,Urine Trace mg/dL (Negative); Urine Appearance Clear (Clear); Urine Color Yellow (Yellow); Urine pH 5.5 (4.5-8.0)
[2022-04-30 19:33] LABS: Blood, Urine Negative (Negative); Urine Urobilinogen 0.2 eU/dL (<2.0)
[2022-04-30] MEDS: ROSUVASTATIN 20 MG TABLET PO SCH (20:11)
[2022-04-30] MEDS: INSULIN GLARGINE 100 UNIT/ML SUBCUT SCH (21:46)
[2022-05-01] MEDS: LACTATED RINGERS 1,000 ML IV SCH ×5 (00:06→22:19)
[2022-05-01] MEDS: MEROPENEM 500 MG in SODIUM CHLORIDE 0.9% 100 ML IV SCH ×4 (00:06→17:09)
[2022-05-01 06:23] LABS: Basophils # 0.1 10*3/uL (0.0-0.2); Basophils % 0.6 % (0.0-0.8); Eosinophils # 0.9 10*3/uL (0.0-0.87); Eosinophils % 7.7 % (0.00-10.9); Hematocrit 29.9 VOL% (42.0-52.0); Hemoglobin 9.2 GM/DL (14.0-18.0); Immature Granulocytes % 0.7 %; Immature Granulocytes Absolute 0.08 #; Lymphocytes # 1.4 10*3/uL (1.4-4.0); Mean Corpuscular HGB Conc 30.8 GM/DL (32-36); Mean Corpuscular Volume 83.3 FL (87-102); Mean Platelet Volume 9.4 FL (9.6-12.0); Monocytes # 0.9 10*3/uL (0.11-0.8); Platelet Count 367 T/CUMM (130-400); Red Blood Count 3.59 MC/CUMM (3.8-5.5); Red Cell Distribution Width 16.1 % (9.3-17.3); White Blood Count 11.7 T/CUMM (4-12)
[2022-05-01 06:42] LABS: Risk Ratio 5.29; VLDL Cholesterol 18.2 MG/DL
[2022-05-01 06:54] LABS: Calcium 9.1 MG/DL (8.5-10.1); Osmolality,Calculated 279.5 MOS/KG (273-304); Potassium 4.3 MMOL/L (3.5-5.1)
[2022-05-01] MEDS: INSULIN LISPRO 100 UNIT/ML SUBCUT SCH ×2 (08:37→17:10)
[2022-05-01] MEDS ORDERED: propofoL 200 MG/20 ML VIAL IV ONE (09:13)
[2022-05-01] MEDS ORDERED: ONDANSETRON 4 MG/2 ML VIAL ONE (09:13)
[2022-05-01] MEDS ORDERED: KETAMINE 500 MG/10 ML VIAL ONE (09:13)
[2022-05-01] MEDS ORDERED: LIDOCAINE 2% 5 ML VIAL ONE (09:13)
[2022-05-01] MEDS ORDERED: METOCLOPRAMIDE 10 MG/2 ML VIAL ONE (09:13)
[2022-05-01] MEDS: INSULIN REGULAR 100 UNIT/ML SUBCUT SCH ×4 (09:20→21:52)
[2022-05-01] MEDS ORDERED: fentaNYL 100 MCG/2 ML VIAL ONE (09:30)
[2022-05-01] MEDS ORDERED: SEVOFLURANE 1 UNIT/15 MINUTE INH ONE ×2 (10:15)
[2022-05-01] MEDS ORDERED: KETOROLAC 30 MG/1 ML VIAL ONE (10:25)
[2022-05-01] MEDS ORDERED: LACTATED RINGERS 1,000 ML IV ONE (10:26)
[2022-05-01] MEDS: NYSTATIN POWDER 15 GM BOTTLE TOP SCH ×2 (11:01→21:53)
[2022-05-01] MEDS: GABAPENTIN 400 MG CAPSULE PO SCH ×2 (11:02→21:50)
[2022-05-01] MEDS: ISOSORBIDE DINITRATE 10 MG TABLET PO SCH (11:02)
[2022-05-01] MEDS: PANTOPRAZOLE 40 MG TABLET PO SCH ×2 (11:02→21:50)
[2022-05-01] MEDS: LOSARTAN 25 MG TABLET PO SCH (11:03)
[2022-05-01] MEDS: ASPIRIN EC 81 MG TABLET PO SCH (11:03)
[2022-05-01] MEDS: COENZYME Q10 100 MG CAPSULE PO SCH (11:03)
[2022-05-01] MEDS ORDERED: DEXTROSE 50% 25 GM/50 ML VIAL IV PRN (12:19)
[2022-05-01] MEDS: HYDROmorphone 1 MG/1 ML SYRINGE IV PRN ×2 (12:43→20:26)
[2022-05-01] MEDS ORDERED: TUBERCULIN SKIN TEST 0.1 ML SYRINGE INTRADERM ONE (14:59)
[2022-05-01] MEDS: ROSUVASTATIN 20 MG TABLET PO SCH (21:50)
[2022-05-01] MEDS: INSULIN GLARGINE 100 UNIT/ML SUBCUT SCH (21:53)
[2022-05-02] MEDS: HYDROmorphone 1 MG/1 ML SYRINGE IV PRN ×3 (00:02→21:02)
[2022-05-02] MEDS: MEROPENEM 500 MG in SODIUM CHLORIDE 0.9% 100 ML IV SCH ×4 (00:02→17:21)
[2022-05-02 05:19] LABS: Calcium 9.1 MG/DL (8.5-10.1); Osmolality,Calculated 279.4 MOS/KG (273-304); Potassium 4.7 MMOL/L (3.5-5.1)
[2022-05-02 05:27] LABS: Basophils # 0.1 10*3/uL (0.0-0.2); Basophils % 0.6 % (0.0-0.8); Eosinophils # 0.6 10*3/uL (0.0-0.87); Eosinophils % 4.6 % (0.00-10.9); Hematocrit 28.7 VOL% (42.0-52.0); Hemoglobin 8.6 GM/DL (14.0-18.0); Immature Granulocytes % 0.7 %; Immature Granulocytes Absolute 0.09 #; Lymphocytes # 1.9 10*3/uL (1.4-4.0); Lymphocytes % 14.4 % (21.2-54.2); Mean Corpuscular Volume 86.2 FL (87-102); Mean Platelet Volume 9.9 FL (9.6-12.0); Monocytes % 7.7 % (1.7-12.7); Platelet Count 382 T/CUMM (130-400); Red Blood Count 3.33 MC/CUMM (3.8-5.5); Red Cell Distribution Width 16.2 % (9.3-17.3); White Blood Count 13.4 T/CUMM (4-12)
[2022-05-02] MEDS: FERRIC GLUCONATE COMPLEX 62.5 MG in SODIUM CHLORIDE 0.9% 100 ML IV SCH (09:23)
[2022-05-02] MEDS: ASPIRIN EC 81 MG TABLET PO SCH (09:27)
[2022-05-02] MEDS: PANTOPRAZOLE 40 MG TABLET PO SCH ×2 (09:27→21:01)
[2022-05-02] MEDS: LOSARTAN 25 MG TABLET PO SCH (09:27)
[2022-05-02] MEDS: COENZYME Q10 100 MG CAPSULE PO SCH (09:27)
[2022-05-02] MEDS: ISOSORBIDE DINITRATE 10 MG TABLET PO SCH (09:28)
[2022-05-02] MEDS: INSULIN LISPRO 100 UNIT/ML SUBCUT SCH ×2 (09:32→16:34)
[2022-05-02] MEDS: GABAPENTIN 400 MG CAPSULE PO SCH ×2 (09:38→21:01)
[2022-05-02] MEDS: NYSTATIN POWDER 15 GM BOTTLE TOP SCH ×2 (09:38→21:44)
[2022-05-02] MEDS: INSULIN REGULAR 100 UNIT/ML SUBCUT SCH ×4 (10:06→21:43)
[2022-05-02] MEDS: LACTATED RINGERS 1,000 ML IV SCH (12:38)
[2022-05-02] MEDS: ROSUVASTATIN 20 MG TABLET PO SCH (21:01)
[2022-05-02] MEDS: INSULIN GLARGINE 100 UNIT/ML SUBCUT SCH (21:43)
[2022-05-03] MEDS: LACTATED RINGERS 1,000 ML IV SCH ×3 (00:13→14:34)
[2022-05-03] MEDS: HYDROmorphone 1 MG/1 ML SYRINGE IV PRN ×2 (00:13→09:20)
[2022-05-03] MEDS: MEROPENEM 500 MG in SODIUM CHLORIDE 0.9% 100 ML IV SCH ×2 (00:14→06:03)
[2022-05-03 04:53] LABS: Basophils # 0.1 10*3/uL (0.0-0.2); Basophils % 0.7 % (0.0-0.8); Eosinophils # 0.7 10*3/uL (0.0-0.87); Eosinophils % 5.8 % (0.00-10.9); Hematocrit 29.2 VOL% (42.0-52.0); Immature Granulocytes % 0.6 %; Immature Granulocytes Absolute 0.07 #; Lymphocytes # 2.3 10*3/uL (1.4-4.0); Mean Corpuscular HGB Conc 30.8 GM/DL (32-36); Mean Corpuscular Volume 83.9 FL (87-102); Mean Platelet Volume 9.8 FL (9.6-12.0); Monocytes # 1.3 10*3/uL (0.11-0.8); Monocytes % 11.4 % (1.7-12.7); Neutrophils % 61.5 % (38.7-73.9); Platelet Count 342 T/CUMM (130-400); Red Blood Count 3.48 MC/CUMM (3.8-5.5); Red Cell Distribution Width 16.4 % (9.3-17.3); White Blood Count 11.4 T/CUMM (4-12)
[2022-05-03 05:06] LABS: Calcium 9.4 MG/DL (8.5-10.1); Osmolality,Calculated 274.8 MOS/KG (273-304); Potassium 4.3 MMOL/L (3.5-5.1)
[2022-05-03] MEDS: GABAPENTIN 400 MG CAPSULE PO SCH ×2 (09:20→22:11)
[2022-05-03] MEDS: PANTOPRAZOLE 40 MG TABLET PO SCH ×2 (09:20→22:12)
[2022-05-03] MEDS: NYSTATIN POWDER 15 GM BOTTLE TOP SCH ×2 (09:20→22:38)
[2022-05-03] MEDS: INSULIN LISPRO 100 UNIT/ML SUBCUT SCH ×2 (09:20→17:15)
[2022-05-03] MEDS: INSULIN REGULAR 100 UNIT/ML SUBCUT SCH ×4 (09:24→22:12)
[2022-05-03] MEDS: FERRIC GLUCONATE COMPLEX 62.5 MG in SODIUM CHLORIDE 0.9% 100 ML IV SCH (09:25)
[2022-05-03] MEDS: ASPIRIN EC 81 MG TABLET PO SCH (09:25)
[2022-05-03] MEDS: ISOSORBIDE DINITRATE 10 MG TABLET PO SCH (09:25)
[2022-05-03] MEDS: COENZYME Q10 100 MG CAPSULE PO SCH (09:25)
[2022-05-03] MEDS: LOSARTAN 25 MG TABLET PO SCH (09:25)
[2022-05-03] MEDS: POLYETHYLENE GLYCOL POWDER 17 GM PACK PO SCH (18:13)
[2022-05-03] MEDS: ROSUVASTATIN 20 MG TABLET PO SCH (22:11)
[2022-05-03] MEDS: INSULIN GLARGINE 100 UNIT/ML SUBCUT SCH (22:12)
[2022-05-04] MEDS: LACTATED RINGERS 1,000 ML IV SCH ×2 (00:46→11:17)
[2022-05-04] MEDS: INSULIN REGULAR 100 UNIT/ML SUBCUT SCH ×4 (07:42→20:52)
[2022-05-04] MEDS: INSULIN LISPRO 100 UNIT/ML SUBCUT SCH ×2 (08:10→16:46)
[2022-05-04] MEDS: GABAPENTIN 400 MG CAPSULE PO SCH ×2 (08:11→20:51)
[2022-05-04] MEDS: ASPIRIN EC 81 MG TABLET PO SCH (08:11)
[2022-05-04] MEDS: POLYETHYLENE GLYCOL POWDER 17 GM PACK PO SCH ×2 (08:11→21:03)
[2022-05-04] MEDS: LOSARTAN 25 MG TABLET PO SCH (08:11)
[2022-05-04] MEDS: ISOSORBIDE DINITRATE 10 MG TABLET PO SCH (08:11)
[2022-05-04] MEDS: PANTOPRAZOLE 40 MG TABLET PO SCH ×2 (08:11→20:51)
[2022-05-04] MEDS: COENZYME Q10 100 MG CAPSULE PO SCH (08:11)
[2022-05-04] MEDS: FERRIC GLUCONATE COMPLEX 62.5 MG in SODIUM CHLORIDE 0.9% 100 ML IV SCH (08:19)
[2022-05-04] MEDS: NYSTATIN POWDER 15 GM BOTTLE TOP SCH ×2 (08:20→20:51)
[2022-05-04] MEDS: ROSUVASTATIN 20 MG TABLET PO SCH (20:51)
[2022-05-04] MEDS: INSULIN GLARGINE 100 UNIT/ML SUBCUT SCH (20:52)
[2022-05-04] MEDS: HYDROmorphone 1 MG/1 ML SYRINGE IV PRN (22:39)
[2022-05-05] MEDS: LACTATED RINGERS 1,000 ML IV SCH ×2 (01:02→10:39)
[2022-05-05] MEDS: INSULIN LISPRO 100 UNIT/ML SUBCUT SCH ×2 (08:45→16:06)
[2022-05-05] MEDS: ISOSORBIDE DINITRATE 10 MG TABLET PO SCH (08:46)
[2022-05-05] MEDS: COENZYME Q10 100 MG CAPSULE PO SCH (08:46)
[2022-05-05] MEDS: GABAPENTIN 400 MG CAPSULE PO SCH ×2 (08:46→21:20)
[2022-05-05] MEDS: ASPIRIN EC 81 MG TABLET PO SCH (08:47)
[2022-05-05] MEDS: LOSARTAN 25 MG TABLET PO SCH (08:47)
[2022-05-05] MEDS: PANTOPRAZOLE 40 MG TABLET PO SCH ×2 (08:47→21:20)
[2022-05-05] MEDS: POLYETHYLENE GLYCOL POWDER 17 GM PACK PO SCH ×2 (08:48→21:20)
[2022-05-05] MEDS: NYSTATIN POWDER 15 GM BOTTLE TOP SCH ×2 (08:49→22:16)
[2022-05-05] MEDS: FERRIC GLUCONATE COMPLEX 62.5 MG in SODIUM CHLORIDE 0.9% 100 ML IV SCH (09:14)
[2022-05-05] MEDS: INSULIN REGULAR 100 UNIT/ML SUBCUT SCH ×4 (09:43→21:17)
[2022-05-05] MEDS: INSULIN GLARGINE 100 UNIT/ML SUBCUT SCH (21:16)
[2022-05-05] MEDS: HYDROmorphone 1 MG/1 ML SYRINGE IV PRN (21:20)
[2022-05-05] MEDS: ROSUVASTATIN 20 MG TABLET PO SCH (21:20)
[2022-05-06 06:50] LABS: Basophils # 0.1 10*3/uL (0.0-0.2); Basophils % 0.9 % (0.0-0.8); Eosinophils # 1.1 10*3/uL (0.0-0.87); Eosinophils % 10.3 % (0.00-10.9); Immature Granulocytes % 0.5 %; Immature Granulocytes Absolute 0.05 #; Lymphocytes # 2.7 10*3/uL (1.4-4.0); Lymphocytes % 25.8 % (21.2-54.2); Mean Corpuscular HGB Conc 31.3 GM/DL (32-36); Mean Corpuscular Volume 84.2 FL (87-102); Monocytes % 9.2 % (1.7-12.7); NRBC # 0.02 10*3/uL; Neutrophils % 53.3 % (38.7-73.9); Platelet Count 343 T/CUMM (130-400); Red Cell Distribution Width 16.9 % (9.3-17.3); White Blood Count 10.3 T/CUMM (4-12)
[2022-05-06 07:17] LABS: Calcium 9.2 MG/DL (8.5-10.1); Osmolality,Calculated 277.5 MOS/KG (273-304); Potassium 3.8 MMOL/L (3.5-5.1)
[2022-05-06] MEDS: INSULIN REGULAR 100 UNIT/ML SUBCUT SCH ×3 (07:53→16:49)
[2022-05-06] MEDS: INSULIN LISPRO 100 UNIT/ML SUBCUT SCH ×2 (08:44→16:49)
[2022-05-06] MEDS: POLYETHYLENE GLYCOL POWDER 17 GM PACK PO SCH ×2 (08:44→20:48)
[2022-05-06] MEDS: FERRIC GLUCONATE COMPLEX 62.5 MG in SODIUM CHLORIDE 0.9% 100 ML IV SCH (08:44)
[2022-05-06] MEDS: COENZYME Q10 100 MG CAPSULE PO SCH (08:45)
[2022-05-06] MEDS: PANTOPRAZOLE 40 MG TABLET PO SCH ×2 (08:45→20:48)
[2022-05-06] MEDS: LOSARTAN 25 MG TABLET PO SCH (08:45)
[2022-05-06] MEDS: ISOSORBIDE DINITRATE 10 MG TABLET PO SCH (08:45)
[2022-05-06] MEDS: GABAPENTIN 400 MG CAPSULE PO SCH ×2 (08:45→20:48)
[2022-05-06] MEDS: ASPIRIN EC 81 MG TABLET PO SCH (08:45)
[2022-05-06] MEDS: NYSTATIN POWDER 15 GM BOTTLE TOP SCH ×2 (08:46→20:48)
[2022-05-06] MEDS: MEROPENEM 500 MG in SODIUM CHLORIDE 0.9% 100 ML IV SCH ×3 (10:06→20:48)
[2022-05-06] MEDS: ROSUVASTATIN 20 MG TABLET PO SCH (20:48)
[2022-05-06] MEDS: INSULIN GLARGINE 100 UNIT/ML SUBCUT SCH (20:48)
[2022-05-07] MEDS: MEROPENEM 500 MG in SODIUM CHLORIDE 0.9% 100 ML IV SCH ×4 (04:58→21:00)
[2022-05-07] MEDS: INSULIN REGULAR 100 UNIT/ML SUBCUT SCH ×5 (05:03→21:20)
[2022-05-07 07:04] LABS: Basophils # 0.1 10*3/uL (0.0-0.2); Eosinophils # 1.1 10*3/uL (0.0-0.87); Eosinophils % 10.6 % (0.00-10.9); Hematocrit 28.8 VOL% (42.0-52.0); Immature Granulocytes % 0.5 %; Immature Granulocytes Absolute 0.05 #; Lymphocytes # 1.7 10*3/uL (1.4-4.0); Lymphocytes % 17.5 % (21.2-54.2); Mean Corpuscular HGB Conc 31.3 GM/DL (32-36); Mean Corpuscular Volume 83.5 FL (87-102); Mean Platelet Volume 9.8 FL (9.6-12.0); Monocytes # 0.8 10*3/uL (0.11-0.8); Monocytes % 8.4 % (1.7-12.7); Platelet Count 328 T/CUMM (130-400); Red Blood Count 3.45 MC/CUMM (3.8-5.5); Red Cell Distribution Width 16.6 % (9.3-17.3); White Blood Count 9.9 T/CUMM (4-12)
[2022-05-07 07:21] LABS: Calcium 9.3 MG/DL (8.5-10.1); Osmolality,Calculated 283.3 MOS/KG (273-304); Potassium 4.1 MMOL/L (3.5-5.1)
[2022-05-07] MEDS: POLYETHYLENE GLYCOL POWDER 17 GM PACK PO SCH ×2 (08:20→20:55)
[2022-05-07] MEDS: INSULIN LISPRO 100 UNIT/ML SUBCUT SCH ×2 (08:20→17:14)
[2022-05-07] MEDS: ISOSORBIDE DINITRATE 10 MG TABLET PO SCH (08:21)
[2022-05-07] MEDS: GABAPENTIN 400 MG CAPSULE PO SCH ×2 (08:21→20:54)
[2022-05-07] MEDS: PANTOPRAZOLE 40 MG TABLET PO SCH ×2 (08:21→20:54)
[2022-05-07] MEDS: ASPIRIN EC 81 MG TABLET PO SCH (08:21)
[2022-05-07] MEDS: COENZYME Q10 100 MG CAPSULE PO SCH (08:21)
[2022-05-07] MEDS: LOSARTAN 25 MG TABLET PO SCH (08:21)
[2022-05-07] MEDS: NYSTATIN POWDER 15 GM BOTTLE TOP SCH ×2 (08:26→20:55)
[2022-05-07] MEDS: ACETAMINOPHEN 325 MG TABLET PO PRN (17:16)
[2022-05-07] MEDS: ROSUVASTATIN 20 MG TABLET PO SCH (20:54)
[2022-05-07] MEDS: INSULIN GLARGINE 100 UNIT/ML SUBCUT SCH (20:55)
[2022-05-08] MEDS: ACETAMINOPHEN 325 MG TABLET PO PRN ×3 (00:17→15:40)
[2022-05-08] MEDS: MEROPENEM 500 MG in SODIUM CHLORIDE 0.9% 100 ML IV SCH ×3 (03:47→17:30)
[2022-05-08 06:19] LABS: Basophils # 0.1 10*3/uL (0.0-0.2); Basophils % 1.4 % (0.0-0.8); Immature Granulocytes % 0.7 %; Immature Granulocytes Absolute 0.06 #; Lymphocytes # 2.2 10*3/uL (1.4-4.0); Lymphocytes % 25.4 % (21.2-54.2); Mean Corpuscular Volume 83.6 FL (87-102); Mean Platelet Volume 9.9 FL (9.6-12.0); Monocytes # 0.7 10*3/uL (0.11-0.8); Monocytes % 7.9 % (1.7-12.7); Neutrophils % 53.6 % (38.7-73.9); Platelet Count 338 T/CUMM (130-400); Red Blood Count 3.47 MC/CUMM (3.8-5.5); Red Cell Distribution Width 16.7 % (9.3-17.3); White Blood Count 8.7 T/CUMM (4-12)
[2022-05-08 06:35] LABS: Calcium 9.3 MG/DL (8.5-10.1); Osmolality,Calculated 284.3 MOS/KG (273-304)
[2022-05-08 06:47] LABS: Band Neutrophils 1 % (0-10); Eosinophils 13 % (0-10); Hypochromia Slight; Lymphocytes 21 % (20-55); Microcytosis 1+; Total Cells Counted 100
[2022-05-08 06:48] LABS: Platelet Estimate Normal
[2022-05-08] MEDS: NYSTATIN POWDER 15 GM BOTTLE TOP SCH (09:27)
[2022-05-08] MEDS: GABAPENTIN 400 MG CAPSULE PO SCH (09:28)
[2022-05-08] MEDS: POLYETHYLENE GLYCOL POWDER 17 GM PACK PO SCH (09:28)
[2022-05-08] MEDS: ISOSORBIDE DINITRATE 10 MG TABLET PO SCH (09:28)
[2022-05-08] MEDS: PANTOPRAZOLE 40 MG TABLET PO SCH (09:28)
[2022-05-08] MEDS: COENZYME Q10 100 MG CAPSULE PO SCH (09:28)
[2022-05-08] MEDS: INSULIN LISPRO 100 UNIT/ML SUBCUT SCH (09:29)
[2022-05-08] MEDS: INSULIN REGULAR 100 UNIT/ML SUBCUT SCH ×3 (09:29→17:30)
[2022-05-08] MEDS: ASPIRIN EC 81 MG TABLET PO SCH (09:29)
[2022-05-08] MEDS: LOSARTAN 25 MG TABLET PO SCH (09:29)
[2022-05-08 11:48] VITALS: BP 138/58
== END 2022-05-08 18:00 | disposition swing bed (61) | DRG 240 ==
LOC: N.ED 12:52 → N.EDINP 18:36 → N.3E 21:51
PROVIDERS: ADMIT Student in an Organized Health Care Education/Training Program; ATTEND Student in an Organized Health Care Education/Training Program